=== PATIENT | male | born 1930 | race Caucasian/White ===

== ENCOUNTER 2017-08-13 13:50 | Outpatient (CLI) | payer MEDICARE, OTHER | END 2017-08-13 13:51 | disposition home or self-care (01) | LOC: LAB 13:50 | PROVIDERS: ATTEND Internal Medicine Cardiovascular Disease | DX: I34.1 Nonrheumatic mitral (valve) prolapse (principal); I48.91 Unspecified atrial fibrillation; Z79.01 Long term (current) use of anticoagulants | CPT/HCPCS: 85610 ==

== ENCOUNTER 2017-08-24 11:26 | Outpatient (CLI) | payer MEDICARE, OTHER | END 2017-08-24 11:27 | disposition home or self-care (01) | LOC: LAB.N 11:26 | PROVIDERS: ATTEND Internal Medicine Cardiovascular Disease | DX: I34.1 Nonrheumatic mitral (valve) prolapse (principal); I48.91 Unspecified atrial fibrillation; Z79.01 Long term (current) use of anticoagulants | CPT/HCPCS: 85610 ==

== ENCOUNTER 2017-12-02 13:40 | Outpatient (CLI) | payer MEDICARE, OTHER ==
[2017-12-02 19:18] LABS: INR 3.3 (0.8-1.2); PT - PROTHROMBIN TIME 36.1 secs (9.9-12.6)
[2017-12-02 19:26] LABS: BASOPHILS % (AUTO) 0.5 %; EOSINOPHILS # (AUTO) 0.1 10^3/uL (0.0-0.7); EOSINOPHILS % (AUTO) 1.7 %; HGB - HEMOGLOBIN 12.3 g/dL (14.0-18.0); LYMPHOCYTES # (AUTO) 0.8 10^3/uL (1.5-3.5); LYMPHOCYTES % (AUTO) 14.1 %; MEAN CORPUSCULAR HEMOGLOBIN 31.6 pg (27.0-31.0); MEAN CORPUSCULAR HGB CONC 32.3 g/dL (32.0-36.0); MEAN CORPUSCULAR VOLUME 97.8 fL (80.0-94.0); MEAN PLATELET VOLUME 10.1 fL (7.4-11.4); MONOCYTES # (AUTO) 0.6 10^3/uL (0.0-1.0); MONOCYTES % (AUTO) 10.8 %; NEUTROPHILS # (AUTO) 4.3 10^3/uL (1.5-6.6); NEUTROPHILS % (AUTO) 72.9 %; PLT - PLATELET COUNT 151 10^3/uL (130-450); RED BLOOD COUNT 3.91 10^6/uL (4.70-6.10); RED CELL DISTRIBUTION WIDTH 14.3 % (12.0-15.0); WHITE BLOOD COUNT 5.9 x10^3/uL (4.8-10.8)
== END 2017-12-02 13:41 | disposition home or self-care (01) ==
LOC: LAB.WCP 13:40
PROVIDERS: ATTEND Family Medicine
DX: D69.6 Thrombocytopenia, unspecified (principal); Z79.01 Long term (current) use of anticoagulants
CPT/HCPCS: 36415; 85025; 85610

== ENCOUNTER 2017-12-21 07:57 | Outpatient (CLI) | payer MEDICARE, OTHER | END 2017-12-21 07:58 | disposition home or self-care (01) | LOC: LAB.N 07:57 | PROVIDERS: ATTEND Internal Medicine Cardiovascular Disease | DX: I34.1 Nonrheumatic mitral (valve) prolapse (principal); I48.91 Unspecified atrial fibrillation; Z79.01 Long term (current) use of anticoagulants | CPT/HCPCS: 85610 ==

== ENCOUNTER 2018-03-01 08:00 | Outpatient (CLI) | payer MEDICARE, OTHER | END 2018-03-01 08:01 | LOC: LAB.N 08:00 | PROVIDERS: ATTEND Internal Medicine Cardiovascular Disease | DX: I34.1 Nonrheumatic mitral (valve) prolapse (principal); Z79.01 Long term (current) use of anticoagulants; I48.91 Unspecified atrial fibrillation | CPT/HCPCS: 85610 ==

== ENCOUNTER 2018-03-11 08:11 | Outpatient (CLI) | payer MEDICARE, OTHER | END 2018-03-11 08:12 | disposition home or self-care (01) | LOC: LAB.N 08:11 | PROVIDERS: ATTEND Internal Medicine Cardiovascular Disease | DX: I34.1 Nonrheumatic mitral (valve) prolapse (principal); I48.91 Unspecified atrial fibrillation; Z79.01 Long term (current) use of anticoagulants | CPT/HCPCS: 85610 ==

== ENCOUNTER 2018-03-30 08:30 | Outpatient (CLI) | payer MEDICARE, OTHER | END 2018-03-30 08:31 | LOC: LAB.N 08:30 | PROVIDERS: ATTEND Internal Medicine Cardiovascular Disease | DX: I34.1 Nonrheumatic mitral (valve) prolapse (principal); I48.91 Unspecified atrial fibrillation; Z79.01 Long term (current) use of anticoagulants | CPT/HCPCS: 85610 ==

== ENCOUNTER 2018-04-02 09:00 | Outpatient (CLI) | payer MEDICARE, OTHER | END 2018-04-02 09:01 | disposition home or self-care (01) | LOC: LAB.N 09:00 | PROVIDERS: ATTEND Internal Medicine Cardiovascular Disease | DX: I48.91 Unspecified atrial fibrillation (principal); I34.1 Nonrheumatic mitral (valve) prolapse; Z79.01 Long term (current) use of anticoagulants | CPT/HCPCS: 85610 ==

== ENCOUNTER 2018-06-07 19:06 | Inpatient (IN) | payer MEDICARE, OTHER ==
[2018-06-07 19:57] LABS: BASOPHILS # (AUTO) 0.1 10^3/uL (0.0-0.1); BASOPHILS % (AUTO) 0.5 %; EOSINOPHILS % (AUTO) 0.1 %; LYMPHOCYTES # (AUTO) 0.5 10^3/uL (1.5-3.5); LYMPHOCYTES % (AUTO) 4.6 %; MEAN CORPUSCULAR HEMOGLOBIN 31.6 pg (27.0-31.0); MEAN CORPUSCULAR HGB CONC 32.1 g/dL (32.0-36.0); MEAN CORPUSCULAR VOLUME 98.4 fL (80.0-94.0); MEAN PLATELET VOLUME 9.2 fL (7.4-11.4); MONOCYTES # (AUTO) 0.9 10^3/uL (0.0-1.0); MONOCYTES % (AUTO) 7.8 %; NEUTROPHILS # (AUTO) 10.3 10^3/uL (1.5-6.6); PLT - PLATELET COUNT 110 10^3/uL (130-450); RED BLOOD COUNT 4.12 10^6/uL (4.70-6.10); RED CELL DISTRIBUTION WIDTH 16.9 % (12.0-15.0); WHITE BLOOD COUNT 11.9 x10^3/uL (4.8-10.8)
[2018-06-07 20:08] LABS: ALBUMIN/GLOBULIN RATIO 1.7 (1.0-2.2); CREATININE 0.9 mg/dL (0.6-1.2); TOTAL PROTEIN 6.3 g/dL (6.7-8.2)
[2018-06-07] MEDS ORDERED: SODIUM CHLORIDE 0.9% 1,000 ML IV ONE (20:13)
--- NOTE | 2018-06-07 20:16 | XRAY Report ---
Procedure Date: 06/07/2018 Accession Number: [id number] / [id number] Procedure: XR - Chest 1 View X-Ray CPT Code: 90425 FULL RESULT: EXAM: CHEST RADIOGRAPHY EXAM DATE: 06/07/2018 07:57 PM. CLINICAL HISTORY: Fever. COMPARISON: None. TECHNIQUE: 1 view. FINDINGS: Lungs/Pleura: Nonspecific streaky left retrocardiac opacities. Lungs are otherwise clear. No pneumothorax or significant pleural effusion. Mediastinum: Mild cardiomegaly. Mildly tortuous thoracic aorta with mild calcification at the aortic arch. Pulmonary vasculature is within normal limits. Other: Diffuse osseous demineralization. IMPRESSION: 1. Nonspecific left basilar opacities may represent atelectasis/scarring versus aspiration/pneumonia. 2. Mild cardiomegaly without overt CHF/volume overload. RADIA
[2018-06-07] MEDS ORDERED: IPRATROPIUM/ALBUTEROL 3 ML NEB INH STA (20:39)
[2018-06-07] MEDS ORDERED: AZITHROMYCIN INJ 500 MG in SODIUM CHLORIDE 0.9% 250 ML IV STA (20:39)
[2018-06-07] MEDS ORDERED: cefTRIAXone 1 GM VIAL IVP STA (20:39)
--- NOTE | 2018-06-07 20:40 | ED Physician Documentation ---
History of Present Illness - Stated complaint Stated Complaint: FEVER - Chief complaint Chief Complaint: Fever - History obtained from History obtained from: Patient, Family - History of Present Illness Timing: Today Pain level max: 0 Pain level now: 0 Improved by: nothing Worsened by: nothing - Additonal information Additional information: Patient is an 88-year-old male who had a temperature of 101 at home today. Has had a cough for the past 5 years. Family states that he was weaker than usual today as well, normally lives independently at home with his . Today had trouble getting out of the chair and get into the bathroom. He has had trouble drinking liquids recently as well and appears to be coughing on the liquids when he drinks. Review of Systems Ten Systems: 10 systems reviewed and negative Constitutional: reports: Fever Nose: denies: Rhinorrhea / runny nose, Congestion Throat: denies: Sore throat Cardiac: denies: Chest pain / pressure Respiratory: reports: Cough GI: denies: Nausea, Vomiting, Diarrhea : denies: Dysuria, Frequency, Hesitancy Skin: denies: Rash Musculoskeletal: denies: Neck pain, Back pain Neurologic: denies: Focal weakness, Numbness, Headache PD PAST MEDICAL HISTORY - Past Medical History Past Medical History: Yes Cardiovascular: Atrial fibrillation Other Past Medical History: Has a health care directive. "Living Will" - Past Surgical History Past Surgical History: Yes Ortho: Hip replacement - Present Medications Home Medications: Ambulatory Orders Medication Instructions Recorded Confirmed Dabigatran Etexilate Mesylate 75 mg PO 06/07/18 [Pradaxa] Simvastatin 10 mg PO 06/07/18 - Allergies Allergies/Adverse Reactions: Allergies Allergy/AdvReac Type Severity Reaction Status Date / Time No Known Drug Allergies Allergy Verified 06/07/18 19:16 - Social History Does the pt smoke?: No Smoking Status: Never smoker Does the pt drink ETOH?: No Does the pt have substance abuse?: No - Immunizations Immunizations are current?: Yes PD ED PE NORMAL - Vitals Vital signs reviewed: Yes - General General: Alert and oriented X 3, No acute distress, Well developed/nourished - HEENT HEENT: PERRL, Ears normal, Moist mucous membranes, Pharynx benign - Neck Neck: Supple, no meningeal sign - Cardiac Cardiac: RRR, Strong equal pulses - Respiratory Respiratory: No respiratory distress, Other (Mild rhonchi left lower lobe with occasional wheeze) - Abdomen Abdomen: Soft, Non tender, Non distended - Back Back: No spinal TTP - Derm Derm: Warm and dry, No rash - Extremities Extremities: No edema, No calf tenderness / cord - Neuro Neuro: Alert and oriented X 3 - Psych Psych: Normal mood, Normal affect Results - Vitals Vitals: Vital Signs - 24 hr 06/07/18 06/07/18 06/07/18 19:11 20:56 20:59 Temperature 36.2 C L 98.3 C H Heart Rate 69 60 62 Respiratory 16 18 18 Rate Blood Pressure 145/65 H 127/76 O2 Saturation 94 96 06/07/18 22:30 Temperature 36.4 C L Heart Rate 68 Respiratory 19 Rate Blood Pressure 134/71 H O2 Saturation 95 Oxygen O2 Source Room air - Labs Labs: Laboratory Tests 06/07/18 06/07/18 19:45 19:45 WBC 11.9 H RBC 4.12 L Hgb 13.0 L Hct 40.6 L MCV 98.4 H MCH 31.6 H MCHC 32.1 RDW 16.9 H Plt Count 110 L MPV 9.2 Neut # (Auto) 10.3 H Lymph # (Auto) 0.5 L [place] # (Auto) 0.9 Eos # (Auto) 0.0 Baso # (Auto) 0.1 Absolute Nucleated RBC 0.00 Nucleated RBC % 0.0 Sodium 138 Potassium 4.0 Chloride 104 Carbon Dioxide 24 Anion Gap 10.0 BUN 26 H Creatinine 0.9 Estimated GFR (MDRD) 80 L Glucose 132 H Calcium 9.0 Total Bilirubin 2.0 H AST 25 ALT 19 Alkaline Phosphatase 95 Total Protein 6.3 L Albumin 4.0 Globulin 2.3 Albumin/Globulin Ratio 1.7 Lipase 20 L - Rads (name of study) cxr Radiology: Prelim report reviewed, EMP read contemporaneously, See rad report ( Nonspecific left basilar opacities may represent atelectasis/scarring versus aspiration/pneumonia. Mild cardiomegaly without overt CHF/volume overload. ) PD MEDICAL DECISION MAKING - ED course Complexity details: reviewed results, re-evaluated patient, considered differential, d/w patient, d/w family, d/w cardiology consultants ED course: Patient is an 88-year-old male who presents to the emergency department what appears to be a left basilar pneumonia. Possible aspiration related? Would likely benefit from a swallow eval or at least thickened liquids on his diet. Given Rocephin and azithromycin. Is still weaker than usual and trouble ambulating independently. Has a leukocytosis, will admit the patient for further care. Discussed the case with Dr. Lynne, hospitalist who accepts. This document was made in part using voice recognition software. While efforts are made to proofread this document, sound alike and grammatical errors may occur. - Sepsis Event Vital Signs: Vital Signs - 24 hr 06/07/18 06/07/18 06/07/18 19:11 20:56 20:59 Temperature 36.2 C L 98.3 C H Heart Rate 69 60 62 Respiratory 16 18 18 Rate Blood Pressure 145/65 H 127/76 O2 Saturation 94 96 06/07/18 22:30 Temperature 36.4 C L Heart Rate 68 Respiratory 19 Rate Blood Pressure 134/71 H O2 Saturation 95 Oxygen O2 Source Room air Departure - Departure Disposition: [address] [facility] DC/Xfer Clinical Impression: Weakness, Dehydration Fever Qualifiers: Fever type: unspecified Qualified Code(s): R50.9 - Fever, unspecified Pneumonia Qualifiers: Pneumonia type: due to unspecified organism Laterality: left Lung location: lower lobe of lung Qualified Code(s): J18.1 - Lobar pneumonia, unspecified organism Condition: Stable Discharge Date/Time: 06/07/18 23:54
[2018-06-07] MEDS ORDERED: WATER FOR INJECTION,STERILE 10 ML ONE (21:00)
[2018-06-07] MEDS ORDERED: PROCHLORPERAZINE 10 MG/2 ML VIAL IVP PRN (23:26)
[2018-06-07] MEDS ORDERED: IPRATROPIUM/ALBUTEROL 3 ML NEB INH PRN (23:26)
[2018-06-07] MEDS ORDERED: ACETAMINOPHEN 325 MG TABLET PO PRN (23:26)
[2018-06-07] MEDS ORDERED: ONDANSETRON 4 MG/2 ML VIAL IVP PRN (23:26)
[2018-06-07] MEDS ORDERED: oxyCODONE 5 MG TABLET PO PRN (23:26)
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
[2018-06-07] MEDS ORDERED: SODIUM CHLORIDE 0.9% 1,000 ML IV SCH (23:45)
[2018-06-08] MEDS: SODIUM CHLORIDE FLUSH 0.9% 10 ML SYRINGE IVP SCH ×3 (01:41→17:43)
[2018-06-08] MEDS: CLINDAMYCIN 900 MG/50 ML 50 ML IV SCH ×3 (05:37→17:43)
[2018-06-08 05:48] LABS: BASOPHILS % (AUTO) 0.6 %; EOSINOPHILS % (AUTO) 0.6 %; HGB - HEMOGLOBIN 12.3 g/dL (14.0-18.0); LYMPHOCYTES # (AUTO) 0.9 10^3/uL (1.5-3.5); LYMPHOCYTES % (AUTO) 10.8 %; MEAN CORPUSCULAR HEMOGLOBIN 32.4 pg (27.0-31.0); MEAN CORPUSCULAR HGB CONC 32.5 g/dL (32.0-36.0); MEAN CORPUSCULAR VOLUME 99.5 fL (80.0-94.0); MEAN PLATELET VOLUME 8.9 fL (7.4-11.4); MONOCYTES # (AUTO) 0.7 10^3/uL (0.0-1.0); MONOCYTES % (AUTO) 8.3 %; NEUTROPHILS # (AUTO) 6.5 10^3/uL (1.5-6.6); NEUTROPHILS % (AUTO) 79.7 %; PLT - PLATELET COUNT 105 10^3/uL (130-450); RED BLOOD COUNT 3.82 10^6/uL (4.70-6.10); RED CELL DISTRIBUTION WIDTH 17.6 % (12.0-15.0); WHITE BLOOD COUNT 8.2 x10^3/uL (4.8-10.8)
[2018-06-08 06:03] LABS: CALCIUM 8.5 mg/dL (8.5-10.3); CREATININE 0.8 mg/dL (0.6-1.2)
[2018-06-08] MEDS: cefTRIAXone 2 GM in SODIUM CHLORIDE 0.9% MINIBAG 100 ML IV SCH (08:09)
[2018-06-08] MEDS ORDERED: SODIUM CHLORIDE 0.9% 1,000 ML IV SCH (08:22)
[2018-06-08] MEDS ORDERED: ENOXAPARIN 40 MG/0.4 ML SYRINGE SUBQ SCH (09:00)
--- NOTE | 2018-06-08 10:06 | Ultrasound Report ---
Procedure Date: 06/08/2018 Accession Number: [id number] / [id number] Procedure: US - Abdomen Complete CPT Code: FULL RESULT: EXAM: Abdomen Complete DATE: 06/08/2018 9:44 AM CLINICAL HISTORY: Elevated bilirubin, generalized weakness COMPARISON: None. TECHNIQUE: Real-time scanning was performed with static images obtained. FINDINGS: Liver: Normal in size and echotexture. At least 12 cm. Main portal vein flow: Hepatopetal. There is small quantity perihepatic ascites. Gallbladder: The gallbladder wall is thickened to 5 mm without evidence of discontinuity or separation of the layers. There is no cholelithiasis and the gallbladder is not significantly distended. There is pericholecystic fluid. The sonographic Daniel's sign is negative, however, it is unclear whether the patient was premedicated with opioids. Biliary System: Common bile duct measures 4 mm. No intrahepatic or extrahepatic ductal dilatation. Pancreas: Visualized portion is unremarkable. Kidneys: Right: 9.8 cm longitudinally. Normal. No contour-deforming mass, stones, or hydronephrosis. Left: 10 cm longitudinally. Normal. No contour-deforming mass, stones, or hydronephrosis. Spleen: 8.3 x 3.6 x 7.8 cm. Normal in size and echotexture. Aorta and Inferior Vena Cava: Significant aortic atherosclerosis. IVC unremarkable. A small amount of right pleural fluid, retroperitoneal perisplenic and right lateral conal fascia fluid are also identified. These findings are without large volume of intraperitoneal ascites. IMPRESSION: Despite absence of a sonographic Daniel's sign and cholelithiasis, the examination is equivocal regarding cholecystitis. In the setting of elevated laboratory markers and clinical sepsis, a HIDA scan is recommended. If the patient does not meet SIRS criteria, this examination should be clinically treated as negative for cholecystitis. Small amount of intraperitoneal and retroperitoneal free fluid including in the gallbladder fossa without overt volume ascites or impression of anasarca. RADIA
[2018-06-08] MEDS: POLYETHYLENE GLYCOL 3350 17 GM PACKET PO SCH (10:12)
[2018-06-08] MEDS: LISINOPRIL 20 MG TABLET PO SCH (10:29)
[2018-06-08] MEDS: FAMOTIDINE 20 MG TABLET PO SCH (10:31)
[2018-06-08] MEDS: DABIGATRAN 75 MG CAPSULE PO SCH ×2 (10:32→20:07)
[2018-06-08] MEDS: SACCHAROMYCES BOULARDII 250 MG CAPSULE PO SCH ×2 (10:36→17:42)
[2018-06-08] MEDS: AZITHROMYCIN INJ 500 MG in SODIUM CHLORIDE 0.9% 250 ML IV SCH (10:38)
[2018-06-08] MEDS: SODIUM CHLORIDE 0.9% 1,000 ML IV SCH ×2 (10:42→14:31)
[2018-06-08 11:27] LABS: BILIRUBIN,URINE NEGATIVE (NEGATIVE); GLUCOSE, URINE (UA) NEGATIVE (NEGATIVE); KETONES,URINE (UA) NEGATIVE (NEGATIVE); LEUKOCYTE ESTERASE, URINE NEGATIVE (NEGATIVE); NITRITE,URINE NEGATIVE (NEGATIVE); OCCULT BLOOD,URINE MODERATE (NEGATIVE); PH,URINE 5.5 PH (5.0-7.5); PROTEIN,URINE TRACE mg/dL (NEGATIVE); UROBILINOGEN,URINE 0.2 (NORMAL) E.U./dL (NORMAL)
[2018-06-08 11:28] LABS: CLARITY,URINE CLEAR (CLEAR)
[2018-06-08 11:41] LABS: BACTERIA,URINE Rare /HPF (None Seen); SQUAMOUS EPITHELIAL CELL,UR NONE SEEN (<= Few)
[2018-06-08] MEDS ORDERED: NITROGLYCERIN SL 0.4 MG TABLET SL PRN (15:03)
[2018-06-08] MEDS ORDERED: FLUTICASONE NASAL SPRAY NAS PRN (15:03)
--- NOTE | 2018-06-08 15:08 | PROVIDER PROGRESS NOTE ---
Subjective - Prog Note Date Prog Note Date: 06/08/18 - Subjective Pt reports feeling: Improved Subjective: pt report he drink and eat regular diet. he denies fever, chill, CP, SOB. Swallow study is pending Current Medications - Current Medications Current Medications: Active Medications Acetaminophen (Tylenol) 650 mg PO Q4HR PRN PRN Reason: Pain 1 to 4 Albuterol/Ipratropium (Duoneb) 3 ml INH RTQID PRN PRN Reason: Wheezing Atorvastatin Calcium (Lipitor) 5 mg PO QPM COUNT INCLUDES [facility] Calcium Carbonate/Glycine (Oysco-500) 500 mg PO BID ALICIA Dabigatran (Pradaxa) 150 mg PO BID COUNT INCLUDES THE [facility] Last Admin: 06/08/18 10:32 Dose: 150 mg Enoxaparin Sodium (Lovenox) 40 mg SUBQ DAILY COUNT INCLUDES THE [facility] Last Admin: 06/08/18 08:08 Dose: Not Given Famotidine (Pepcid) 20 mg PO DAILY COUNT INCLUDES [facility] Last Admin: 06/08/18 10:31 Dose: 20 mg Fluticasone Propionate (Flonase) 1 sprays ELVIE BID PRN PRN Reason: Allergy Symptoms Azithromycin 500 mg/ Sodium (Chloride) 250 mls @ 250 mls/hr IV DAILY COUNT INCLUDES [facility] Last Infusion: 06/08/18 11:40 Dose: Infused Ceftriaxone Sodium 2 gm/ (Sodium Chloride) 100 mls @ 200 mls/hr IV DAILY COUNT INCLUDES [facility] Last Infusion: 06/08/18 08:39 Dose: Infused Clindamycin Phosphate (Cleocin 900 Mg/50 Ml) 50 mls @ 50 mls/hr IV Q6HR COUNT INCLUDES [facility] Last Infusion: 06/08/18 13:00 Dose: Infused Sodium Chloride (Normal Saline 0.9%) 1,000 mls @ 100 mls/hr IV .Q10H ALICIA Last Admin: 06/08/18 14:31 Dose: 100 mls/hr Latanoprost (Xalatan Ophth Drops) 1 drops EACHEYE QPM ALICIA Lisinopril (Zestril) 20 mg PO DAILY COUNT INCLUDES [facility] Last Admin: 06/08/18 10:29 Dose: 20 mg Multivitamins (Theragran) tab PO DAILY COUNT INCLUDES [facility] Nitroglycerin (Nitrostat) 0.4 mg SL Q5MIN PRN PRN Reason: Chest Pain Non-Formulary Medication (Cholecalciferol (Vitamin D3) [Vitamin D3]) 2,000 unit PO DAILY COUNT INCLUDES THE [facility] Ondansetron HCl (Zofran Inj) 4 mg IVP Q6HR PRN PRN Reason: Nausea / Vomiting Oxycodone HCl (Roxicodone) 5 mg PO Q4HR PRN PRN Reason: Pain 5 to 7 Polyethylene Glycol (Miralax) 17 gm PO DAILY COUNT INCLUDES [facility] Last Admin: 06/08/18 10:12 Dose: Not Given Prochlorperazine Edisylate (Compazine Inj) 10 mg IVP Q6HR PRN PRN Reason: Nausea / Vomiting Saccharomyces Boulardii (Florastor) 250 mg PO BIDWM COUNT INCLUDES THE [facility] Last Admin: 06/08/18 10:36 Dose: 250 mg Sodium Chloride (Normal Saline Flush 0.9%) 10 ml IVP PRN PRN PRN Reason: NEEDED PER PROVIDER ORDERS Sodium Chloride (Normal Saline Flush 0.9%) 10 ml IVP 0100,0900,1700 COUNT INCLUDES THE [facility] Last Admin: 06/08/18 10:15 Dose: Not Given Timolol Maleate (Timoptic 0.5% Ophth Drops) 1 drops EACHEYE BID COUNT INCLUDES THE [facility] Simvastatin 10 mg PO QPM 06/07/18 Calcium Carbonate [[id number]] 500 mg PO BID 06/08/18 Cholecalciferol (Vitamin D3) [Vitamin D] 2,000 unit PO DAILY 06/08/18 Dabigatran Etexilate Mesylate [Pradaxa] 150 mg PO BID 06/08/18 Fluticasone [Flonase] 1 sprays ELVIE BID PRN 06/08/18 Latanoprost 0.005% Ophth Drops [Xalatan Ophth Drops] 1 drops EACHEYE QPM Multivitamin [Theragran] 1 each PO DAILY 06/08/18 Nitroglycerin [Nitrostat] 0.4 mg SL Q5MIN PRN 06/08/18 Ramipril [Altace] 5 mg PO DAILY 06/08/18 Timolol 0.5% Ophth Drops [Timoptic 0.5% Ophth Drops] 1 drops EACHEYE BID Objective - Vital Signs/Intake & Output Reviewed Vital Signs: Yes Vital Signs: Vital Signs x48h Temp Pulse Pulse Pulse Resp BP BP 06/08/18 11:59 48 L 16 117/63 06/08/18 11:50 67 45 L 125/72 06/08/18 08:00 36.5 C 67 16 131/71 H BP Pulse Ox 06/08/18 11:59 99 06/08/18 11:50 117/63 06/08/18 08:00 97 Intake & Output: Intake & Output 06/05/18 06/06/18 06/07/18 06/08/18 23:59 23:59 23:59 23:59 Intake Total 1476.334 Output Total 425 Balance 1051.334 - Objective General Appearance: positive: No acute distress, Alert. negative: Lethargic Eyes Bilateral: positive: Normal inspection, PERRL. negative: No lid inflammation, Conjunctivae nml ENT: positive: ENT inspection nml, Pharynx nml, No signs of dehydration. negative: Purulent nasal drainage, Pharyngeal erythema, Oral lesions Neck: positive: Nml inspection, Thyroid nml, No JVD, Trachea midline. negative : Thyromegaly, Lymphadenopathy (R), Lymphadenopathy (L), Stiff neck, Swelling/ bruising, Tracheal deviation Respiratory: positive: Chest non-tender, No respiratory distress, Breath sounds nml. negative: Wheezes, Rales, Rhonchi Cardiovascular: positive: Regular rate & rhythm, Systolic murmur, Diastolic murmur. negative: Irregularly irregular, Extrasystoles, Tachycardia, Bradycardia Peripheral Pulses: 2+ Radial (R), 2+ Radial (L), 2+ Dorsalis pedis (R), 2+ Dorsalis pedis (L) Abdomen: positive: Non-tender, No organomegaly, Nml bowel sounds, No distention. negative: Tenderness, Guarding, Rebound Back: positive: Nml inspection. negative: CVA tenderness (R), CVA tenderness (L ) Skin: positive: Color nml, No rash, Warm, Dry. negative: Cyanosis, Diaphoresis , Pallor Extremities: positive: Non-tender, Full ROM, Nml appearance. negative: Calf tenderness, Joint swelling, Sinai's sign/cords Neurologic/Psychiatric: positive: Oriented x3, Sensation nml, Mood/affect nml. negative: Weakness, Sensory loss, Facial droop, Slurred/abnml speech, Depressed mood/affect - Lab Results Fish Bones: 06/08/18 05:26 06/08/18 05:26 Other Labs: Lab Results x24hrs 06/08/18 06/08/18 Range/Units 05:26 05:26 WBC 8.2 (4.8-10.8) x10^3/uL RBC 3.82 L (4.70-6.10) 10^6/uL Hgb 12.3 L (14.0-18.0) g/dL Hct 38.0 L (42.0-52.0) % MCV 99.5 H (80.0-94.0) fL MCH 32.4 H (27.0-31.0) pg MCHC 32.5 (32.0-36.0) g/dL RDW 17.6 H (12.0-15.0) % Plt Count 105 L (130-450) 10^3/uL MPV 8.9 (7.4-11.4) fL Neut # (Auto) 6.5 (1.5-6.6) 10^3/uL Lymph # (Auto) 0.9 L (1.5-3.5) 10^3/uL Blanco # (Auto) 0.7 (0.0-1.0) 10^3/uL Eos # (Auto) 0.0 (0.0-0.7) 10^3/uL Baso # (Auto) 0.0 (0.0-0.1) 10^3/uL Absolute Nucleated RBC 0.00 x10^3/uL Nucleated RBC % 0.0 /100WBC Sodium 142 (135-145) mmol/L Potassium 3.8 (3.5-5.0) mmol/L Chloride 108 (101-111) mmol/L Carbon Dioxide 27 (21-32) mmol/L Anion Gap 7.0 (6-13) BUN 21 H (6-20) mg/dL Creatinine 0.8 (0.6-1.2) mg/dL Estimated GFR (MDRD) 91 (>89) Glucose 107 H (70-100) mg/dL Calcium 8.5 (8.5-10.3) mg/dL ABX Reporting Has patient been on IV antibiotics over the past 48 hours?: Yes Assessment/Plan - Problem List (1) CAP (community acquired pneumonia) Impression: Conclusion/Plan: 06/08 pt's WBC is normal now, 99% sats on room air, response well to the treatment continue antibiotics vital and lab monitor pt Patient presented to the emergency department with generalized weakness. He is also been having coughing for the last week which appears to be worse with drinking fluids. Patient developed fever at home and had generalized weakness. On presentation to the emergency department the patient is not hypoxic but does have a leukocytosis and chest x-ray shows a left basilar infiltrate concerning for pneumonia. The patient's pneumonia severity index score is 103 for which a hospitalization is recommended. Patient is admitted for treatment of community acquired pneumonia. There is also concern for possible aspiration therefore patient will also be given coverage for aspiration pneumonia. Plan: IV antibiotics with ceftriaxone, azithromycin and clindamycin to cover community -acquired pneumonia and aspiration pneumonia Supplemental oxygen as needed IV fluids Physical therapy for generalized weakness (2) Generalized weakness Conclusion/Plan: 06/08 PT evaluation Treat pneumonia with IV antibiotics and IV fluids Patient presented with generalized weakness. Patient at baseline is ambulatory without any assistance. Today the patient was barely able to stand up from his chair and was requiring assistance with ambulation. This occurred acutely but he did not have any focal deficits. It appears that his generalized weakness is secondary to ongoing pneumonia. Plan: Treat pneumonia with IV antibiotics and IV fluids PT evaluation (3) Atrial fibrillation Conclusion/Plan: continue tele and vital monitor continue Pradaxa Patient has chronic atrial fibrillation and is on Pradaxa for anticoagulation. The patient's heart rate appears to be well-controlled in the 60s. Patient is not on any rate control agents. We will continue the patient's home dose of Pradaxa and get an echocardiogram to evaluate cardiac function (4) Hyperbilirubinemia Conclusion/Plan: The patient has hyperbilirubinemia with a total bilirubin of 2.0. This is elevated from being normal in September 2017. The patient does not appear to be jaundiced but given that he also has a thrombocytopenia we are concerned about possible liver disease. Therefore patient will get an abdominal ultrasound and we will continue to monitor his bilirubin. (5) Thrombocytopenia Conclusion/Plan: Patient has thrombocytopenia with a platelet count of 110. The patient's platelet count was in the normal range in November 2017. Given that he also has a elevated bilirubin and concern for the possibility of liver disease causing thrombocytopenia therefore we will get an abdominal ultrasound. The patient does not appear to be on any medications that would cause thrombocytopenia. We will continue to monitor the patient's platelets. (6) Hyperlipidemia Conclusion/Plan: Patient has a history of hyperlipidemia and is on a statin at home. While the patient is hospitalized will be continued on his home dose of statin. (7) pulmonary hypertension RVSP is 104 mmHG, it seems pt is without fluid retention in CXR, no edema on leg. continue support, O2 supple as needed Qualifiers: Laterality: left Lung location: lower lobe of lung Qualified Code(s): J18.1 - Lobar pneumonia, unspecified organism
[2018-06-08] MEDS: CALCIUM CARB (OYSTER SHELL) 500 MG TABLET PO SCH (20:07)
[2018-06-08] MEDS: ATORVASTATIN 10 MG TABLET PO SCH (20:07)
[2018-06-08] MEDS: TIMOLOL 0.5% OPHTH DROPS EACHEYE SCH (20:20)
[2018-06-08] MEDS: LATANOPROST 0.005% OPHTH DROPS EACHEYE SCH (20:20)
[2018-06-09] MEDS: CLINDAMYCIN 900 MG/50 ML 50 ML IV SCH ×4 (00:35→19:40)
[2018-06-09] MEDS: SODIUM CHLORIDE FLUSH 0.9% 10 ML SYRINGE IVP SCH ×3 (00:36→17:05)
[2018-06-09] MEDS: SODIUM CHLORIDE 0.9% 1,000 ML IV SCH ×3 (00:36→17:57)
[2018-06-09 05:22] LABS: BASOPHILS % (AUTO) 0.5 %; EOSINOPHILS % (AUTO) 0.9 %; HGB - HEMOGLOBIN 12.7 g/dL (14.0-18.0); LYMPHOCYTES # (AUTO) 0.8 10^3/uL (1.5-3.5); LYMPHOCYTES % (AUTO) 13.5 %; MEAN CORPUSCULAR HEMOGLOBIN 32.2 pg (27.0-31.0); MEAN CORPUSCULAR HGB CONC 32.2 g/dL (32.0-36.0); MEAN PLATELET VOLUME 9.3 fL (7.4-11.4); MONOCYTES # (AUTO) 0.5 10^3/uL (0.0-1.0); NEUTROPHILS # (AUTO) 4.2 10^3/uL (1.5-6.6); NEUTROPHILS % (AUTO) 76.1 %; PLT - PLATELET COUNT 92 10^3/uL (130-450); RED BLOOD COUNT 3.94 10^6/uL (4.70-6.10); RED CELL DISTRIBUTION WIDTH 17.5 % (12.0-15.0); WHITE BLOOD COUNT 5.6 x10^3/uL (4.8-10.8)
[2018-06-09 05:25] LABS: CALCIUM 8.3 mg/dL (8.5-10.3); CREATININE 0.9 mg/dL (0.6-1.2)
[2018-06-09] MEDS: FAMOTIDINE 20 MG TABLET PO SCH (09:20)
[2018-06-09] MEDS: DABIGATRAN 75 MG CAPSULE PO SCH ×2 (09:20→21:20)
[2018-06-09] MEDS: MULTIVITAMIN TABLET PO SCH (09:21)
[2018-06-09] MEDS: POLYETHYLENE GLYCOL 3350 17 GM PACKET PO SCH (09:21)
[2018-06-09] MEDS: AZITHROMYCIN INJ 500 MG in SODIUM CHLORIDE 0.9% 250 ML IV SCH (09:21)
[2018-06-09] MEDS: CALCIUM CARB (OYSTER SHELL) 500 MG TABLET PO SCH ×2 (09:21→21:20)
[2018-06-09] MEDS: cefTRIAXone 2 GM in SODIUM CHLORIDE 0.9% MINIBAG 100 ML IV SCH (09:21)
[2018-06-09] MEDS: CHOLECALCIFEROL 1,000 UNIT TABLET PO SCH (09:22)
[2018-06-09] MEDS: SACCHAROMYCES BOULARDII 250 MG CAPSULE PO SCH ×2 (09:22→17:26)
[2018-06-09] MEDS: LISINOPRIL 20 MG TABLET PO SCH (09:22)
[2018-06-09] MEDS: TIMOLOL 0.5% OPHTH DROPS EACHEYE SCH ×2 (09:25→21:20)
--- NOTE | 2018-06-09 13:41 | XRAY Report ---
Procedure Date: 06/09/2018 Accession Number: [id number] / [id number] Procedure: [place] - Modified Barium Swallow W/SP CPT Code: FULL RESULT: EXAM: Modified Barium Swallow W/SP DATE: 06/09/2018 1:25 PM CLINICAL HISTORY: dysphagia COMPARISON: None. TECHNIQUE: Under the direction of speech pathology, patient swallowed various consistencies of barium under lateral fluoroscopic observation of the neck. Fluoroscopic exposure time: 1 minute 27 seconds. Number of fluoroscopic images: 78. Cine fluoroscopy recorded. FINDINGS: Airway Protection: Normal epiglottic motion. Hesitation and some penetration. Other: Lateral contrast retaining outpouching on the patient's right side, suspect Hussein Kirsten diverticulum/dehiscence. Please also refer to full report from Speech Pathology. IMPRESSION: Penetration without aspiration. 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 Surgical referral for evaluation, direct visualization and potential intervention is recommended. RADIA
--- NOTE | 2018-06-09 16:06 | PROVIDER PROGRESS NOTE ---
Subjective - Prog Note Date Prog Note Date: 06/09/18 - Subjective Pt reports feeling: Improved Subjective: pt has no cough, fever, chill, CP, SOB. but today pt present some confused. Current Medications - Current Medications Current Medications: Active Medications Acetaminophen (Tylenol) 650 mg PO Q4HR PRN PRN Reason: Pain 1 to 4 Albuterol/Ipratropium (Duoneb) 3 ml INH RTQID PRN PRN Reason: Wheezing Atorvastatin Calcium (Lipitor) 5 mg PO QPM [facility] Last Admin: 06/08/18 20:07 Dose: 5 mg Calcium Carbonate/Glycine (Oysco-500) 500 mg PO BID [facility] Last Admin: 06/09/18 09:21 Dose: 500 mg Cholecalciferol (Vitamin D3) 2,000 unit PO DAILY [facility] Last Admin: 06/09/18 09:22 Dose: 2,000 unit Dabigatran (Pradaxa) 150 mg PO BID [facility] Last Admin: 06/09/18 09:20 Dose: 150 mg Famotidine (Pepcid) 20 mg PO DAILY [facility] Last Admin: 06/09/18 09:20 Dose: 20 mg Fluticasone Propionate (Flonase) 1 sprays ELVIE BID PRN PRN Reason: Allergy Symptoms Ceftriaxone Sodium 2 gm/ (Sodium Chloride) 100 mls @ 200 mls/hr IV DAILY [facility] Last Infusion: 06/09/18 11:26 Dose: Infused Clindamycin Phosphate (Cleocin 900 Mg/50 Ml) 50 mls @ 50 mls/hr IV Q6HR [facility] Last Admin: 06/09/18 14:06 Dose: 50 mls/hr Sodium Chloride (Normal Saline 0.9%) 1,000 mls @ 75 mls/hr IV .[id number] [facility] Last Admin: 06/09/18 08:00 Dose: 75 mls/hr Latanoprost (Xalatan Ophth Drops) 1 drops EACHEYE QPM [facility] Last Admin: 06/08/18 20:20 Dose: Not Given Lisinopril (Zestril) 20 mg PO DAILY [facility] Last Admin: 06/09/18 09:22 Dose: 20 mg Multivitamins (Theragran) 1 tab PO DAILY [facility] Last Admin: 06/09/18 09:21 Dose: 1 tab Nitroglycerin (Nitrostat) 0.4 mg SL Q5MIN PRN PRN Reason: Chest Pain Ondansetron HCl (Zofran Inj) 4 mg IVP Q6HR PRN PRN Reason: Nausea / Vomiting Polyethylene Glycol (Miralax) 17 gm PO DAILY [facility] Last Admin: 06/09/18 09:21 Dose: 17 gm Prochlorperazine Edisylate (Compazine Inj) 10 mg IVP Q6HR PRN PRN Reason: Nausea / Vomiting Saccharomyces Boulardii (Florastor) 250 mg PO BIDWM [facility] Last Admin: 06/09/18 09:22 Dose: 250 mg Sodium Chloride (Normal Saline Flush 0.9%) 10 ml IVP PRN PRN PRN Reason: NEEDED PER PROVIDER ORDERS Sodium Chloride (Normal Saline Flush 0.9%) 10 ml IVP 0100,0900,1700 [facility] Last Admin: 06/09/18 09:23 Dose: 10 ml Timolol Maleate (Timoptic 0.5% Ophth Drops) 1 drops EACHEYE BID [facility] Last Admin: 06/09/18 09:25 Dose: 1 drops Simvastatin 10 mg PO QPM 06/07/18 Calcium Carbonate [[id number]] 500 mg PO BID 06/08/18 Cholecalciferol (Vitamin D3) [Vitamin D] 2,000 unit PO DAILY 06/08/18 Dabigatran Etexilate Mesylate [Pradaxa] 150 mg PO BID 06/08/18 Fluticasone [Flonase] 1 sprays ELVIE BID PRN 06/08/18 Latanoprost 0.005% Ophth Drops [Xalatan Ophth Drops] 1 drops EACHEYE QPM Multivitamin [Theragran] 1 each PO DAILY 06/08/18 Nitroglycerin [Nitrostat] 0.4 mg SL Q5MIN PRN 06/08/18 Ramipril [Altace] 5 mg PO DAILY 06/08/18 Timolol 0.5% Ophth Drops [Timoptic 0.5% Ophth Drops] 1 drops EACHEYE BID Objective - Vital Signs/Intake & Output Reviewed Vital Signs: Yes Vital Signs: Vital Signs x48h Temp Pulse Resp BP Pulse Ox 06/09/18 15:23 36.5 C 63 20 139/76 H 98 06/09/18 14:02 36.7 C 66 20 130/74 97 Intake & Output: Intake & Output 06/06/18 06/07/18 06/08/18 06/09/18 23:59 23:59 23:59 23:59 Intake Total 5547.098 1668 Output Total 1025 850 Balance 881.334 960 - Objective General Appearance: positive: No acute distress, Alert. negative: Lethargic Eyes Bilateral: positive: Normal inspection, PERRL, No lid inflammation, Conjunctivae nml ENT: positive: ENT inspection nml, Pharynx nml, No signs of dehydration. negative: Purulent nasal drainage, Pharyngeal erythema, Oral lesions Neck: positive: Nml inspection, Thyroid nml, No JVD, Trachea midline. negative : Thyromegaly, Lymphadenopathy (R), Lymphadenopathy (L), Stiff neck, Swelling/ bruising, Tracheal deviation Respiratory: positive: Chest non-tender, No respiratory distress, Breath sounds nml. negative: Wheezes, Rales, Rhonchi Cardiovascular: positive: Regular rate & rhythm, No murmur, No gallop. negative : Irregularly irregular, Extrasystoles, Tachycardia, Bradycardia, JVD present, Systolic murmur, Diastolic murmur Peripheral Pulses: 2+ Radial (R), 2+ Radial (L), 2+ Dorsalis pedis (R), 2+ Dorsalis pedis (L) Abdomen: positive: Non-tender, No organomegaly, Nml bowel sounds, No distention. negative: Tenderness, Guarding, Rebound Back: positive: Nml inspection. negative: CVA tenderness (R), CVA tenderness (L ) Skin: positive: Color nml, No rash, Warm, Dry. negative: Cyanosis, Diaphoresis , Pallor Extremities: positive: Non-tender, Full ROM, Nml appearance. negative: Calf tenderness, Joint swelling, Sinai's sign/cords Neurologic/Psychiatric: positive: Sensation nml, Mood/affect nml. negative: Weakness, Sensory loss, Facial droop, Slurred/abnml speech, Depressed mood/ affect - Lab Results Fish Bones: 06/09/18 05:05 06/09/18 05:05 Other Labs: Lab Results x24hrs 06/09/18 06/09/18 Range/Units 05:05 05:05 WBC 5.6 (4.8-10.8) x10^3/uL RBC 3.94 L (4.70-6.10) 10^6/uL Hgb 12.7 L (14.0-18.0) g/dL Hct 39.4 L (42.0-52.0) % MCV 100.0 H (80.0-94.0) fL MCH 32.2 H (27.0-31.0) pg MCHC 32.2 (32.0-36.0) g/dL RDW 17.5 H (12.0-15.0) % Plt Count 92 L (130-450) 10^3/uL MPV 9.3 (7.4-11.4) fL Neut # (Auto) 4.2 (1.5-6.6) 10^3/uL Lymph # (Auto) 0.8 L (1.5-3.5) 10^3/uL Gordon # (Auto) 0.5 (0.0-1.0) 10^3/uL Eos # (Auto) 0.0 (0.0-0.7) 10^3/uL Baso # (Auto) 0.0 (0.0-0.1) 10^3/uL Absolute Nucleated RBC 0.01 x10^3/uL Nucleated RBC % 0.1 /100WBC Sodium 140 (135-145) mmol/L Potassium 3.8 (3.5-5.0) mmol/L Chloride 110 (101-111) mmol/L Carbon Dioxide 22 (21-32) mmol/L Anion Gap 8.0 (6-13) BUN 20 (6-20) mg/dL Creatinine 0.9 (0.6-1.2) mg/dL Estimated GFR (MDRD) 80 L (>89) Glucose 118 H (70-100) mg/dL Calcium 8.3 L (8.5-10.3) mg/dL ABX Reporting Has patient been on IV antibiotics over the past 48 hours?: Yes Assessment/Plan - Problem List (1) CAP (community acquired pneumonia) Impression: (1) CAP (community acquired pneumonia) Impression: Conclusion/Plan: 06/09 pt's WBC is normal now, 98% sats on room air. no fever, chill, cough. response well to the treatment continue antibiotics vital and lab monitor pt 06/08 pt's WBC is normal now, 99% sats on room air, response well to the treatment continue antibiotics vital and lab monitor pt Patient presented to the emergency department with generalized weakness. He is also been having coughing for the last week which appears to be worse with drinking fluids. Patient developed fever at home and had generalized weakness. On presentation to the emergency department the patient is not hypoxic but does have a leukocytosis and chest x-ray shows a left basilar infiltrate concerning for pneumonia. The patient's pneumonia severity index score is 103 for which a hospitalization is recommended. Patient is admitted for treatment of community acquired pneumonia. There is also concern for possible aspiration therefore patient will also be given coverage for aspiration pneumonia. Plan: IV antibiotics with ceftriaxone, azithromycin and clindamycin to cover community -acquired pneumonia and aspiration pneumonia Supplemental oxygen as needed IV fluids Physical therapy for generalized weakness (2) Generalized weakness Conclusion/Plan: 06/09, continue PT/OT, PT/OT recommend previous living condition. plan d/c tomorrow. 06/08 PT evaluation Treat pneumonia with IV antibiotics and IV fluids Patient presented with generalized weakness. Patient at baseline is ambulatory without any assistance. Today the patient was barely able to stand up from his chair and was requiring assistance with ambulation. This occurred acutely but he did not have any focal deficits. It appears that his generalized weakness is secondary to ongoing pneumonia. Plan: Treat pneumonia with IV antibiotics and IV fluids PT evaluation (3) Atrial fibrillation Conclusion/Plan: continue tele and vital monitor continue Pradaxa Patient has chronic atrial fibrillation and is on Pradaxa for anticoagulation. The patient's heart rate appears to be well-controlled in the 60s. Patient is not on any rate control agents. We will continue the patient's home dose of Pradaxa and get an echocardiogram to evaluate cardiac function (4) Hyperbilirubinemia Conclusion/Plan: The patient has hyperbilirubinemia with a total bilirubin of 2.0. This is elevated from being normal in September 2017. The patient does not appear to be jaundiced but given that he also has a thrombocytopenia we are concerned about possible liver disease. Therefore patient will get an abdominal ultrasound and we will continue to monitor his bilirubin. (5) Thrombocytopenia Conclusion/Plan: Patient has thrombocytopenia with a platelet count of 110. The patient's platelet count was in the normal range in November 2017. Given that he also has a elevated bilirubin and concern for the possibility of liver disease causing thrombocytopenia therefore we will get an abdominal ultrasound. The patient does not appear to be on any medications that would cause thrombocytopenia. We will continue to monitor the patient's platelets. (6) Hyperlipidemia Conclusion/Plan: Patient has a history of hyperlipidemia and is on a statin at home. While the patient is hospitalized will be continued on his home dose of statin. (7) pulmonary hypertension RVSP is 104 mmHG, it seems pt is without fluid retention in CXR, no edema on leg. continue support, O2 supple as needed (8) delirium/confusion pt present some confused. Discussed with pharmacy, hold Azithymycin re-oriented to pt neur check Qualifiers: Laterality: left Lung location: lower lobe of lung Qualified Code(s): J18.1 - Lobar pneumonia, unspecified organism
[2018-06-09] MEDS ORDERED: SODIUM CHLORIDE FLUSH 0.9% 10 ML SYRINGE ONE (16:33)
[2018-06-09] MEDS: ATORVASTATIN 10 MG TABLET PO SCH (21:19)
[2018-06-09] MEDS: LATANOPROST 0.005% OPHTH DROPS EACHEYE SCH (21:20)
[2018-06-10] MEDS: SODIUM CHLORIDE FLUSH 0.9% 10 ML SYRINGE IVP SCH ×3 (01:13→17:51)
[2018-06-10] MEDS: CLINDAMYCIN 900 MG/50 ML 50 ML IV SCH ×4 (01:47→19:54)
[2018-06-10 05:03] LABS: BASOPHILS % (AUTO) 0.4 %; EOSINOPHILS % (AUTO) 0.1 %; HGB - HEMOGLOBIN 13.4 g/dL (14.0-18.0); LYMPHOCYTES # (AUTO) 0.7 10^3/uL (1.5-3.5); LYMPHOCYTES % (AUTO) 8.5 %; MEAN CORPUSCULAR HEMOGLOBIN 32.4 pg (27.0-31.0); MEAN CORPUSCULAR HGB CONC 33.3 g/dL (32.0-36.0); MEAN CORPUSCULAR VOLUME 97.2 fL (80.0-94.0); MEAN PLATELET VOLUME 9.5 fL (7.4-11.4); MONOCYTES # (AUTO) 0.8 10^3/uL (0.0-1.0); MONOCYTES % (AUTO) 9.5 %; NEUTROPHILS # (AUTO) 6.4 10^3/uL (1.5-6.6); NEUTROPHILS % (AUTO) 81.5 %; PLT - PLATELET COUNT 109 10^3/uL (130-450); RED BLOOD COUNT 4.15 10^6/uL (4.70-6.10); RED CELL DISTRIBUTION WIDTH 17.1 % (12.0-15.0); WHITE BLOOD COUNT 7.9 x10^3/uL (4.8-10.8)
[2018-06-10 05:08] LABS: CALCIUM 8.6 mg/dL (8.5-10.3)
[2018-06-10] MEDS: SACCHAROMYCES BOULARDII 250 MG CAPSULE PO SCH ×2 (07:52→16:56)
--- NOTE | 2018-06-10 08:37 | XRAY Report ---
Procedure Date: 06/10/2018 Accession Number: [id number] / [id number] Procedure: XR - Chest 1 View X-Ray CPT Code: 41507 FULL RESULT: EXAM: Chest 1 View X-Ray DATE: 06/10/2018 8:26 AM CLINICAL HISTORY: SOB COMPARISON: 06/07/2018. TECHNIQUE: Single view of the chest. FINDINGS: Interval decrease in lung volumes with increased prominence of interstitial pulmonary markings and blunting of the right lung base with a small left pleural effusion. Stable cardiomegaly with stable widening of the vascular pedicle and no focal pulmonary opacities in the upper lungs. IMPRESSION: Central vascular congestion and small left pleural effusion, new compared to prior. RADIA
[2018-06-10] MEDS: CALCIUM CARB (OYSTER SHELL) 500 MG TABLET PO SCH ×2 (08:51→20:06)
[2018-06-10] MEDS: DABIGATRAN 75 MG CAPSULE PO SCH ×2 (08:51→20:06)
[2018-06-10] MEDS: MULTIVITAMIN TABLET PO SCH (08:52)
[2018-06-10] MEDS: FAMOTIDINE 20 MG TABLET PO SCH (08:52)
[2018-06-10] MEDS: LISINOPRIL 20 MG TABLET PO SCH (08:52)
[2018-06-10] MEDS: CHOLECALCIFEROL 1,000 UNIT TABLET PO SCH (08:52)
[2018-06-10] MEDS: cefTRIAXone 2 GM in SODIUM CHLORIDE 0.9% MINIBAG 100 ML IV SCH (08:52)
[2018-06-10] MEDS: POLYETHYLENE GLYCOL 3350 17 GM PACKET PO SCH (08:53)
[2018-06-10] MEDS: SODIUM CHLORIDE 0.9% 1,000 ML IV SCH (08:54)
[2018-06-10] MEDS: TIMOLOL 0.5% OPHTH DROPS EACHEYE SCH ×2 (08:54→20:06)
--- NOTE | 2018-06-10 12:13 | CT Report ---
Procedure Date: 06/10/2018 Accession Number: [id number] / [id number] Procedure: CT - Head W/O CPT Code: FULL RESULT: EXAM: CT HEAD EXAM DATE: 06/10/2018 CLINICAL HISTORY: Facial droop COMPARISON: None. TECHNIQUE: Multiaxial CT images were obtained from the foramen magnum to the vertex. Reformats: Coronal. IV contrast: None. In accordance with CT protocol optimization, one or more of the following dose reduction techniques were utilized for this exam: automated exposure control, adjustment of mA and/or KV based on patient size, or use of iterative reconstructive technique. FINDINGS: The degree of ventricular prominence, particularly in the lateral ventricle bilaterally, is at the upper limits of normal relative to sulcal prominence No extra-axial fluid collection is seen. Boyle white matter differentiation is preserved. Areas of low attenuation are seen throughout the cerebral hemisphere white matter. No intracranial mass or hemorrhage is present. The calvarium is intact. IMPRESSION: 1. No acute intracranial process is identified by noncontrast head CT. 2. Areas of low attenuation in the cerebral hemisphere white matter are nonspecific. Commonly, these are secondary to small vessel ischemic change. 3. Ventricles are at the upper limits of normal relative to sulcal prominence. This could be due to central volume loss or NPH.
--- NOTE | 2018-06-10 16:00 | PROVIDER PROGRESS NOTE ---
Subjective - Prog Note Date Prog Note Date: 06/10/18 - Subjective Pt reports feeling: Improved Subjective: family concern pt's neurological status. pt did show right facial slight or gently droop. order CT of head. nurse also report pt's HR is around 50, pt seems fatigue. pt denies chest pain, fever, chill, cough, SOB. Current Medications - Current Medications Current Medications: Active Medications Acetaminophen (Tylenol) 650 mg PO Q4HR PRN PRN Reason: Pain 1 to 4 Albuterol/Ipratropium (Duoneb) 3 ml INH RTQID PRN PRN Reason: Wheezing Atorvastatin Calcium (Lipitor) 5 mg PO QPM [facility] Last Admin: 06/09/18 21:19 Dose: 5 mg Calcium Carbonate/Glycine (Oysco-500) 500 mg PO BID [facility] Last Admin: 06/10/18 08:51 Dose: 500 mg Cholecalciferol (Vitamin D3) 2,000 unit PO DAILY [facility] Last Admin: 06/10/18 08:52 Dose: 2,000 unit Dabigatran (Pradaxa) 150 mg PO BID [facility] Last Admin: 06/10/18 08:51 Dose: 150 mg Famotidine (Pepcid) 20 mg PO DAILY [facility] Last Admin: 06/10/18 08:52 Dose: 20 mg Fluticasone Propionate (Flonase) 1 sprays ELVIE BID PRN PRN Reason: Allergy Symptoms Ceftriaxone Sodium 2 gm/ (Sodium Chloride) 100 mls @ 200 mls/hr IV DAILY [facility] Last Infusion: 06/10/18 09:55 Dose: Infused Clindamycin Phosphate (Cleocin 900 Mg/50 Ml) 50 mls @ 50 mls/hr IV Q6H [facility] Last Infusion: 06/10/18 14:45 Dose: Infused Latanoprost (Xalatan Ophth Drops) 1 drops EACHEYE QPM [facility] Last Admin: 06/09/18 21:20 Dose: 1 drops Lisinopril (Zestril) 20 mg PO DAILY [facility] Last Admin: 06/10/18 08:52 Dose: 20 mg Multivitamins (Theragran) 1 tab PO DAILY [facility] Last Admin: 06/10/18 08:52 Dose: 1 tab Nitroglycerin (Nitrostat) 0.4 mg SL Q5MIN PRN PRN Reason: Chest Pain Ondansetron HCl (Zofran Inj) 4 mg IVP Q6HR PRN PRN Reason: Nausea / Vomiting Polyethylene Glycol (Miralax) 17 gm PO DAILY [facility] Last Admin: 06/10/18 08:53 Dose: Not Given Prochlorperazine Edisylate (Compazine Inj) 10 mg IVP Q6HR PRN PRN Reason: Nausea / Vomiting Saccharomyces Boulardii (Florastor) 250 mg PO BIDWM [facility] Last Admin: 06/10/18 07:52 Dose: 250 mg Sodium Chloride (Normal Saline Flush 0.9%) 10 ml IVP PRN PRN PRN Reason: NEEDED PER PROVIDER ORDERS Sodium Chloride (Normal Saline Flush 0.9%) 10 ml IVP 0100,0900,1700 [facility] Last Admin: 06/10/18 08:53 Dose: Not Given Timolol Maleate (Timoptic 0.5% Ophth Drops) 1 drops EACHEYE BID [facility] Last Admin: 06/10/18 08:54 Dose: 1 drops Simvastatin 10 mg PO QPM 06/07/18 Calcium Carbonate [Kdbr-Qis-149] 500 mg PO BID 06/08/18 Cholecalciferol (Vitamin D3) [Vitamin D] 2,000 unit PO DAILY 06/08/18 Dabigatran Etexilate Mesylate [Pradaxa] 150 mg PO BID 06/08/18 Fluticasone [Flonase] 1 sprays ELVIE BID PRN 06/08/18 Latanoprost 0.005% Ophth Drops [Xalatan Ophth Drops] 1 drops EACHEYE QPM Multivitamin [Theragran] 1 each PO DAILY 06/08/18 Nitroglycerin [Nitrostat] 0.4 mg SL Q5MIN PRN 06/08/18 Ramipril [Altace] 5 mg PO DAILY 06/08/18 Timolol 0.5% Ophth Drops [Timoptic 0.5% Ophth Drops] 1 drops EACHEYE BID Objective - Vital Signs/Intake & Output Reviewed Vital Signs: Yes Vital Signs: Vital Signs x48h Temp Pulse Resp BP Pulse Ox 06/10/18 12:53 36.3 C L 61 18 91/77 97 06/10/18 08:00 36.3 C L 72 20 151/89 H 93 Intake & Output: Intake & Output 07/30/18 07/31/18 08/01/18 08/02/18 23:59 23:59 23:59 23:59 Intake Total 0056.930 9763.25 1500.0 Output Total 1025 1300 450 Balance 960.623 7973.25 1050.0 - Objective General Appearance: positive: No acute distress, Alert. negative: Lethargic Eyes Bilateral: positive: Normal inspection, PERRL, No lid inflammation, Conjunctivae nml ENT: positive: ENT inspection nml, Pharynx nml, No signs of dehydration. negative: Purulent nasal drainage, Pharyngeal erythema, Oral lesions Neck: positive: Nml inspection, Thyroid nml, No JVD, Trachea midline. negative : Thyromegaly, Lymphadenopathy (R), Lymphadenopathy (L), Stiff neck, Carotid bruit, Swelling/bruising, Tracheal deviation Respiratory: positive: Chest non-tender, No respiratory distress. negative: Wheezes, Rales Cardiovascular: positive: Regular rate & rhythm, Irregularly irregular, Systolic murmur, Diastolic murmur. negative: Extrasystoles, Tachycardia, Bradycardia Peripheral Pulses: 2+ Radial (R), 2+ Radial (L), 2+ Dorsalis pedis (R), 2+ Dorsalis pedis (L) Abdomen: positive: Non-tender, No organomegaly, Nml bowel sounds, No distention. negative: Tenderness, Guarding, Rebound Back: positive: Nml inspection. negative: CVA tenderness (R), CVA tenderness (L ) Skin: positive: Color nml, No rash, Warm, Dry. negative: Cyanosis, Diaphoresis , Pallor Extremities: positive: Non-tender, Full ROM, Nml appearance. negative: Calf tenderness, Joint swelling, Sinai's sign/cords Neurologic/Psychiatric: positive: Sensation nml, Mood/affect nml. negative: Weakness, Sensory loss, Facial droop, Slurred/abnml speech, Depressed mood/ affect - Lab Results Fish Bones: 06/10/18 04:40 06/10/18 04:40 Other Labs: Lab Results x24hrs 06/10/18 06/10/18 06/09/18 Range/Units 04:40 04:40 17:05 WBC 7.9 (4.8-10.8) x10^3/uL RBC 4.15 L (4.70-6.10) 10^6/uL Hgb 13.4 L (14.0-18.0) g/dL Hct 40.3 L (42.0-52.0) % MCV 97.2 H (80.0-94.0) fL MCH 32.4 H (27.0-31.0) pg MCHC 33.3 (32.0-36.0) g/dL RDW 17.1 H (12.0-15.0) % Plt Count 109 L (130-450) 10^3/uL MPV 9.5 (7.4-11.4) fL Neut # (Auto) 6.4 (1.5-6.6) 10^3/uL Lymph # (Auto) 0.7 L (1.5-3.5) 10^3/uL Livingston # (Auto) 0.8 (0.0-1.0) 10^3/uL Eos # (Auto) 0.0 (0.0-0.7) 10^3/uL Baso # (Auto) 0.0 (0.0-0.1) 10^3/uL Absolute Nucleated RBC 0.01 x10^3/uL Nucleated RBC % 0.2 /100WBC Sodium 139 (135-145) mmol/L Potassium 3.8 (3.5-5.0) mmol/L Chloride 108 (101-111) mmol/L Carbon Dioxide 20 L (21-32) mmol/L Anion Gap 11.0 (6-13) BUN 21 H (6-20) mg/dL Creatinine 1.0 (0.6-1.2) mg/dL Estimated GFR (MDRD) 71 L (>89) Glucose 135 H (70-100) mg/dL Calcium 8.6 (8.5-10.3) mg/dL Troponin I < 0.04 (<0.49) ng/mL ABX Reporting Has patient been on IV antibiotics over the past 48 hours?: Yes Assessment/Plan - Problem List (1) CAP (community acquired pneumonia) Impression: Conclusion/Plan: 06/10 99% sats on room air, no cough, fever, chill, WBC is normal 06/09 pt's WBC is normal now, 98% sats on room air. no fever, chill, cough. response well to the treatment continue antibiotics vital and lab monitor pt 06/08 pt's WBC is normal now, 99% sats on room air, response well to the treatment continue antibiotics vital and lab monitor pt Patient presented to the emergency department with generalized weakness. He is also been having coughing for the last week which appears to be worse with drinking fluids. Patient developed fever at home and had generalized weakness. On presentation to the emergency department the patient is not hypoxic but does have a leukocytosis and chest x-ray shows a left basilar infiltrate concerning for pneumonia. The patient's pneumonia severity index score is 103 for which a hospitalization is recommended. Patient is admitted for treatment of community acquired pneumonia. There is also concern for possible aspiration therefore patient will also be given coverage for aspiration pneumonia. Plan: IV antibiotics with ceftriaxone, azithromycin and clindamycin to cover community -acquired pneumonia and aspiration pneumonia Supplemental oxygen as needed IV fluids Physical therapy for generalized weakness (2) Generalized weakness Conclusion/Plan: continue PT/OT 06/09, continue PT/OT, PT/OT recommend previous living condition. plan d/c tomorrow. 06/08 PT evaluation Treat pneumonia with IV antibiotics and IV fluids Patient presented with generalized weakness. Patient at baseline is ambulatory without any assistance. Today the patient was barely able to stand up from his chair and was requiring assistance with ambulation. This occurred acutely but he did not have any focal deficits. It appears that his generalized weakness is secondary to ongoing pneumonia. 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 The patient's heart rate appears to be well-controlled in the 60s. Patient is not on any rate control agents. We will continue the patient's home dose of Pradaxa and get an echocardiogram to evaluate cardiac function (4) Hyperbilirubinemia Conclusion/Plan: The patient has hyperbilirubinemia with a total bilirubin of 2.0. This is elevated from being normal in September 2017. The patient does not appear to be jaundiced but given that he also has a thrombocytopenia we are concerned about possible liver disease. Therefore patient will get an abdominal ultrasound and we will continue to monitor his bilirubin. (5) Thrombocytopenia Conclusion/Plan: Patient has thrombocytopenia with a platelet count of 110. The patient's platelet count was in the normal range in November 2017. Given that he also has a elevated bilirubin and concern for the possibility of liver disease causing thrombocytopenia therefore we will get an abdominal ultrasound. The patient does not appear to be on any medications that would cause thrombocytopenia. We will continue to monitor the patient's platelets. (6) Hyperlipidemia Conclusion/Plan: Patient has a history of hyperlipidemia and is on a statin at home. While the patient is hospitalized will be continued on his home dose of statin. (7) pulmonary hypertension RVSP is 104 mmHG, it seems pt is without fluid retention in CXR, no edema on leg. continue support, O2 supple as needed (8) delirium/confusion pt present some confused. 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 Lujan. Dr. Lujan state she cannot do this kind of surgery, it usually require ENT or GI to do this kind of procedure. I discuss with pt's daughter, and pt's son in the law. They agree to have out- pt ENT for further evaluation and treatment (10) right facial droop order CT of head, followup pt seems no other focal neurological deficit pt is on Pradaxa 150mg bid continue neuro check (11) bradycardia pt's pulse is around 60 now from previous 50. pt is asymptomatic, walking with PT continue tele, vital monitor Qualifiers: Laterality: left Lung location: lower lobe of lung Qualified Code(s): J18.1 - Lobar pneumonia, unspecified organism
[2018-06-10] MEDS: SODIUM CHLORIDE FLUSH 0.9% 10 ML SYRINGE IVP PRN (19:54)
[2018-06-10] MEDS: ATORVASTATIN 10 MG TABLET PO SCH (20:06)
[2018-06-10] MEDS: LATANOPROST 0.005% OPHTH DROPS EACHEYE SCH (20:06)
[2018-06-11] MEDS: SODIUM CHLORIDE FLUSH 0.9% 10 ML SYRINGE IVP SCH ×3 (01:15→17:26)
[2018-06-11] MEDS: CLINDAMYCIN 900 MG/50 ML 50 ML IV SCH ×4 (01:15→19:15)
[2018-06-11 05:17] LABS: BASOPHILS # (AUTO) 0.1 10^3/uL (0.0-0.1); BASOPHILS % (AUTO) 0.6 %; EOSINOPHILS % (AUTO) 0.2 %; HGB - HEMOGLOBIN 12.8 g/dL (14.0-18.0); LYMPHOCYTES # (AUTO) 0.7 10^3/uL (1.5-3.5); LYMPHOCYTES % (AUTO) 8.5 %; MEAN CORPUSCULAR HEMOGLOBIN 32.2 pg (27.0-31.0); MEAN CORPUSCULAR HGB CONC 33.4 g/dL (32.0-36.0); MEAN CORPUSCULAR VOLUME 96.6 fL (80.0-94.0); MEAN PLATELET VOLUME 8.7 fL (7.4-11.4); MONOCYTES # (AUTO) 0.9 10^3/uL (0.0-1.0); MONOCYTES % (AUTO) 10.7 %; NEUTROPHILS # (AUTO) 6.5 10^3/uL (1.5-6.6); PLT - PLATELET COUNT 106 10^3/uL (130-450); RED BLOOD COUNT 3.98 10^6/uL (4.70-6.10); RED CELL DISTRIBUTION WIDTH 17.2 % (12.0-15.0); WHITE BLOOD COUNT 8.1 x10^3/uL (4.8-10.8)
[2018-06-11 05:23] LABS: CALCIUM 8.3 mg/dL (8.5-10.3); CREATININE 1.1 mg/dL (0.6-1.2)
[2018-06-11] MEDS: SACCHAROMYCES BOULARDII 250 MG CAPSULE PO SCH ×2 (08:23→17:26)
[2018-06-11] MEDS: cefTRIAXone 2 GM in SODIUM CHLORIDE 0.9% MINIBAG 100 ML IV SCH (09:43)
[2018-06-11] MEDS: DABIGATRAN 75 MG CAPSULE PO SCH ×2 (09:46→21:01)
[2018-06-11] MEDS: CALCIUM CARB (OYSTER SHELL) 500 MG TABLET PO SCH ×2 (09:46→21:00)
[2018-06-11] MEDS: CHOLECALCIFEROL 1,000 UNIT TABLET PO SCH (09:46)
[2018-06-11] MEDS: LISINOPRIL 20 MG TABLET PO SCH (09:46)
[2018-06-11] MEDS: FAMOTIDINE 20 MG TABLET PO SCH (09:46)
[2018-06-11] MEDS: POLYETHYLENE GLYCOL 3350 17 GM PACKET PO SCH (09:47)
[2018-06-11] MEDS: TIMOLOL 0.5% OPHTH DROPS EACHEYE SCH ×2 (09:47→21:01)
[2018-06-11] MEDS: MULTIVITAMIN TABLET PO SCH (09:47)
--- NOTE | 2018-06-11 17:59 | MRI Report ---
Procedure Date: 06/11/2018 Accession Number: [id number] / [id number] Procedure: MRI - Brain W/O CPT Code: FULL RESULT: EXAM: MRI BRAIN WITHOUT CONTRAST EXAM DATE: 06/11/2018 04:33 PM. CLINICAL HISTORY: Facial droop. COMPARISON: Prior CT head 06/10/2018. TECHNIQUE: Multiplanar, multisequence T1-weighted and fluid-sensitive MR sequences of the brain were performed. Sequences optimized for routine evaluation. Other: None. IV Contrast: None. Findings: Relevant images are indicated (image number, series number). There is no acute or subacute ischemic change in the brain. There is small hemosiderin deposition present right occipital lobe. Otherwise, no significant hemosiderin deposition in the brain. There is moderate/marked generalized brain atrophy, moderate/marked compensatory ventricular enlargement. There is marked scattered periventricular, some vertical white matter disease including marked bilateral pontine white matter disease. Marked midbrain atrophy. Pituitary, infundibulum unremarkable. Craniocervical junction, limited evaluation upper cervical cord negative. Impressions: 1. No acute or subacute ischemic change. 2. Moderate/marked generalized brain atrophy, marked midbrain atrophy. 3. Marked scattered dense white matter disease most likely related to chronic small vessel ischemic disease. RADIA
[2018-06-11] MEDS: SODIUM CHLORIDE FLUSH 0.9% 10 ML SYRINGE IVP PRN (20:25)
[2018-06-11] MEDS: ATORVASTATIN 10 MG TABLET PO SCH (21:00)
[2018-06-11] MEDS: LATANOPROST 0.005% OPHTH DROPS EACHEYE SCH (21:04)
[2018-06-12] MEDS: CLINDAMYCIN 900 MG/50 ML 50 ML IV SCH ×2 (02:38→09:53)
[2018-06-12] MEDS: SODIUM CHLORIDE FLUSH 0.9% 10 ML SYRINGE IVP SCH ×2 (02:39→08:59)
[2018-06-12 08:02] VITALS: BP 150/71
[2018-06-12] MEDS: cefTRIAXone 2 GM in SODIUM CHLORIDE 0.9% MINIBAG 100 ML IV SCH (08:58)
[2018-06-12] MEDS: CHOLECALCIFEROL 1,000 UNIT TABLET PO SCH (08:59)
[2018-06-12] MEDS: POLYETHYLENE GLYCOL 3350 17 GM PACKET PO SCH (08:59)
[2018-06-12] MEDS: FAMOTIDINE 20 MG TABLET PO SCH (08:59)
[2018-06-12] MEDS: DABIGATRAN 75 MG CAPSULE PO SCH (08:59)
[2018-06-12] MEDS: SACCHAROMYCES BOULARDII 250 MG CAPSULE PO SCH (08:59)
[2018-06-12] MEDS: MULTIVITAMIN TABLET PO SCH (08:59)
[2018-06-12] MEDS: LISINOPRIL 20 MG TABLET PO SCH (08:59)
[2018-06-12] MEDS: CALCIUM CARB (OYSTER SHELL) 500 MG TABLET PO SCH (09:04)
[2018-06-12] MEDS: TIMOLOL 0.5% OPHTH DROPS EACHEYE SCH (09:53)
--- NOTE | 2018-06-12 11:54 | PROVIDER PROGRESS NOTE ---
Subjective - Prog Note Date Prog Note Date: 06/11/18 Prog Note Time: 08:00 - Subjective Pt reports feeling: Improved Subjective: Al states that he does not wish to return home and feels that rehab would be helpful to both he and his . He denies any new symptoms such as shortness of breath, chest pain or pressure, nausea, vomiting, or a new cough. Current Medications - Current Medications Current Medications: Active Medications Acetaminophen (Tylenol) 650 mg PO Q4HR PRN PRN Reason: Pain 1 to 4 Albuterol/Ipratropium (Duoneb) 3 ml INH RTQID PRN PRN Reason: Wheezing Atorvastatin Calcium (Lipitor) 5 mg PO QPM [facility] Last Admin: 06/11/18 21:00 Dose: 5 mg Calcium Carbonate/Glycine (Oysco-500) 500 mg PO BID [facility] Last Admin: 06/12/18 09:04 Dose: 500 mg Cholecalciferol (Vitamin D3) 2,000 unit PO DAILY [facility] Last Admin: 06/12/18 08:59 Dose: 2,000 unit Dabigatran (Pradaxa) 150 mg PO BID [facility] Last Admin: 06/12/18 08:59 Dose: 150 mg Famotidine (Pepcid) 20 mg PO DAILY [facility] Last Admin: 06/12/18 08:59 Dose: 20 mg Fluticasone Propionate (Flonase) 1 sprays ELVIE BID PRN PRN Reason: Allergy Symptoms Ceftriaxone Sodium 2 gm/ (Sodium Chloride) 100 mls @ 200 mls/hr IV DAILY [facility] Last Infusion: 06/12/18 09:53 Dose: Infused Clindamycin Phosphate (Cleocin 900 Mg/50 Ml) 50 mls @ 50 mls/hr IV Q6H [facility] Last Infusion: 06/12/18 10:49 Dose: Infused Latanoprost (Xalatan Ophth Drops) 1 drops EACHEYE QPM [facility] Last Admin: 06/11/18 21:04 Dose: Not Given Lisinopril (Zestril) 20 mg PO DAILY [facility] Last Admin: 06/12/18 08:59 Dose: 20 mg Multivitamins (Theragran) 1 tab PO DAILY [facility] Last Admin: 06/12/18 08:59 Dose: 1 tab Nitroglycerin (Nitrostat) 0.4 mg SL Q5MIN PRN PRN Reason: Chest Pain Ondansetron HCl (Zofran Inj) 4 mg IVP Q6HR PRN PRN Reason: Nausea / Vomiting Polyethylene Glycol (Miralax) 17 gm PO DAILY [facility] Last Admin: 06/12/18 08:59 Dose: Not Given Prochlorperazine Edisylate (Compazine Inj) 10 mg IVP Q6HR PRN PRN Reason: Nausea / Vomiting Saccharomyces Boulardii (Florastor) 250 mg PO BIDWM [facility] Last Admin: 06/12/18 08:59 Dose: 250 mg Sodium Chloride (Normal Saline Flush 0.9%) 10 ml IVP PRN PRN PRN Reason: NEEDED PER PROVIDER ORDERS Last Admin: 06/11/18 20:25 Dose: 10 ml Sodium Chloride (Normal Saline Flush 0.9%) 10 ml IVP 0100,0900,1700 [facility] Last Admin: 06/12/18 08:59 Dose: 10 ml Timolol Maleate (Timoptic 0.5% Ophth Drops) 1 drops EACHEYE BID [facility] Last Admin: 06/12/18 09:53 Dose: 1 drops Simvastatin 10 mg PO QPM 06/07/18 Calcium Carbonate [Airn-Xld-056] 500 mg PO BID 06/08/18 Cholecalciferol (Vitamin D3) [Vitamin D] 2,000 unit PO DAILY 06/08/18 Dabigatran Etexilate Mesylate [Pradaxa] 150 mg PO BID 06/08/18 Fluticasone [Flonase] 1 sprays ELVIE BID PRN 06/08/18 Latanoprost 0.005% Ophth Drops [Xalatan Ophth Drops] 1 drops EACHEYE QPM Multivitamin [Theragran] 1 each PO DAILY 06/08/18 Nitroglycerin [Nitrostat] 0.4 mg SL Q5MIN PRN 06/08/18 Ramipril [Altace] 5 mg PO DAILY 06/08/18 Timolol 0.5% Ophth Drops [Timoptic 0.5% Ophth Drops] 1 drops EACHEYE BID Objective - Vital Signs/Intake & Output Reviewed Vital Signs: Yes Vital Signs: Vital Signs x48h Temp Pulse Pulse Resp BP Pulse Ox 06/12/18 08:00 36.2 C L 55 L 18 150/71 H 98 08/04/18 07:50 52 L 18 Intake & Output: Intake & Output 06/09/18 06/10/18 06/11/18 06/12/18 23:59 23:59 23:59 23:59 Intake Total 4126.25 2247.5 1140 610 Output Total 1300 1075 950 Balance 2826.25 1172.5 1140 -340 - Objective General Appearance: positive: No acute distress, Alert Eyes Bilateral: positive: Normal inspection Eyes: OU Conjunctivae pale, OU Scleral icterus, OU Other (very dry with minimal blinking, bilaterally) ENT: positive: ENT inspection nml, Pharynx nml, Pharyngeal erythema, Dry mucous membranes Neck: positive: Nml inspection, Thyroid nml, No JVD, Stiff neck Respiratory: positive: Chest non-tender, No respiratory distress, Other ( diminished with bilateral low lobe crackles.) Cardiovascular: positive: Regular rate & rhythm, Systolic murmur, Decreased pulse(s) Peripheral Pulses: 1+ Radial (R), 1+ Radial (L) Abdomen: positive: Non-tender, Nml bowel sounds, Other (rounded, soft) Back: positive: Nml inspection Skin: positive: No rash, Warm, Dry Extremities: positive: Non-tender, Pedal edema (chronic, dependent BLE), Joint swelling Neurologic/Psychiatric: positive: Oriented x3, Motor nml, Weakness, Sensory loss , Depressed mood/affect Reflexes: Bicep (R): 2+, Bicep (L): 2+ - Lab Results Fish Bones: 06/11/18 04:55 06/11/18 04:55 ABX Reporting Has patient been on IV antibiotics over the past 48 hours?: No Assessment/Plan - Problem List (1) CAP (community acquired pneumonia) Impression: Upon presentation to the ED the had reports of a worsening cough for the past one week, that appeared worse after drinking fluids. The patient was not hypoxic, but did have a leukocytosis and chest x-ray showed a left basilar infiltrate concerning for pneumonia. A pneumonia severity index score was calculated at 103 for which a hospitalization is recommended. Aspiration pneumonia was suspected at the time of admission, and the patient was given IV azithromycin and clindamycin, IV fluids, and physical therapy was ordered due to generalized weakness. Today the patient is found to have an oxygen saturation on room air of 99%. He had no cough, fevers, chills, and WBC is now normal. Plan: Continue to monitor for aspiration and plan for discharge in the AM. Qualifiers: Laterality: left Lung location: lower lobe of lung Qualified Code(s): J18.1 - Lobar pneumonia, unspecified organism (2) Generalized weakness Impression: The patient has had a slow decline in general function and has a shuffled gait when ambulatory. Physical and occupatinoal therapies continued to work with him and suggest detention placement. Social work is making referrals. The patient is in agreement that going back home with his weakness may lead to a fall. The patient is finishing with IV antibiotics and has been eating a fair amount. Plan: continue PT/OT, await placement recommendations, referrals. (3) Atrial fibrillation Impression: Patient has chronic atrial fibrillation and is on Pradaxa for anticoagulation. The patient's heart rate appears to be well-controlled in the 60s. Patient is not on any rate control agents. We will continue the patient's home dose of Pradaxa. An echocardiogram shows a reduced EF at 50-55%, some valve abnormalities, and severe right sided HF with an RVSP at rest of 104 mmHg. Plan: Continue medications, and monitor vital signs. Qualifiers: Atrial fibrillation type: chronic Qualified Code(s): I48.2 - Chronic atrial fibrillation (4) Moderate to severe pulmonary hypertension Impression: Echocardiogram results show severe cor pulmonale with an RVSP at rest of 104 mmHG and an LV septal wall that is flattened in diastole. The patient does not require oxygen, so I suspect this is not a new problem. The patient appears to have a chronic enlarged abdominal girth and BLE dependent edema, (pitting). Plan: Give oxygen as needed, order LISANDRO hose, and monitor for fluid overload.
--- NOTE | 2018-06-12 11:58 | Discharge Plan ---
"Discharge Plan for SNF / [facility] - DC Plan and Transition Orders Disposition: 06 Home Health Service Condition: Good SNF Transition Orders: Admit to: [facility] under the care of Enrique Rogers Discharge Diagnosis: Aspiration pneumonia, weakness, chronic atrial fibrillation, hyperlipidemia, severe pulmonary HTN, hypertension, CHF with reduced EF, severe mitral regurg, severe mitral prolapse, and aortic root dilation, negrito Santos diverticulum, and debility. Medicare Certification: I certify that Post Hospital detention care is medically necessary on a continuing basis for any of the conditions for which she/he is receiving care during hospitalization. Notify PCP of admission and forward orders to primary provider for signature. Weight on admission and weekly. Call PCP immediately if weight increases by 10 pounds or if patient develops dyspnea, chest pain/tightness or edema. Allergies and Adverse Reactions: Allergies Allergy/AdvReac Type Severity Reaction Status Date / Time No Known Drug Allergies Allergy Verified 06/07/18 19:16 - Medications New Prescriptions: Clindamycin HCl [Clindamycin 150MG CAP] 450 mg PO TID 5 Days #45 capsule Saccharomyces Boulardii [Florastor] 250 mg PO BID #30 capsule Spironolactone 12.5 mg PO DAILY #15 tablet - Diet Type: Geriatric Texture: Regular May have monthly special meal: No - Therapies | Activity Therapy: Evaluation | Treat if indicated: PT, OT Rehabilitation Potential: Maximize functional status, Return to independent living, Maintain present ADL Functional Activity: Activity as Tolerated Weight Bearing: Full Weight Assistance Devices: Walker"
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
== END 2018-06-12 13:33 | disposition home health service (06) | DRG 178 ==
LOC: ED 19:06 → MS2 23:26
PROVIDERS: ADMIT Internal Medicine; ATTEND Nurse Practitioner
DX: J18.1 Lobar pneumonia, unspecified organism (principal); E86.0 Dehydration; I48.91 Unspecified atrial fibrillation; J69.0 Pneumonitis due to inhalation of food and vomit; I50.20 Unspecified systolic (congestive) heart failure; Q39.6 Congenital diverticulum of esophagus; I48.2 Chronic atrial fibrillation; E78.5 Hyperlipidemia, unspecified; D69.6 Thrombocytopenia, unspecified; I27.81 Cor pulmonale (chronic); I11.0 Hypertensive heart disease with heart failure; I27.20 Pulmonary hypertension, unspecified; F03.90 Unspecified dementia, unspecified severity, without behavioral disturbance, psychotic disturbance, mood disturbance, and anxiety; I34.1 Nonrheumatic mitral (valve) prolapse; I34.0 Nonrheumatic mitral (valve) insufficiency; E80.6 Other disorders of bilirubin metabolism; R29.810 Facial weakness; R00.1 Bradycardia, unspecified; Z51.5 Encounter for palliative care; Z79.01 Long term (current) use of anticoagulants; Z91.81 History of falling; Z87.891 Personal history of nicotine dependence; Z79.899 Other long term (current) drug therapy
CPT/HCPCS: 36415; 70450; 70551; 71045; 74230; 76700; 80048; 80053; 81001; 81003; 83690; 84484; 85025; 87086; 93005; 93306; 94640; 96365; 96366; 96375; 99284

== ENCOUNTER 2018-07-07 14:34 | Outpatient (CLI) | payer MEDICARE, OTHER ==
[2018-07-07] MEDS ORDERED: IOPAMIDOL-300 100 ML VIAL ONE (14:45)
[2018-07-07] MEDS ORDERED: IOPAMIDOL-300 100 ML VIAL IVP ONE (15:32)
--- NOTE | 2018-07-09 09:43 | CT Report ---
Reason: LOCALIZED SWELLING, MASS AND LUMP, NECK Procedure Date: 07/07/2018 Accession Number: [id number] / [id number] Procedure: CT - Neck Soft Tissue W/ CPT Code: FULL RESULT: EXAM: CT SOFT TISSUE NECK WITH CONTRAST. EXAM DATE: 07/07/2018 03:17 PM. HISTORY: Potential Hussein-Kirsten diverticulum, history of difficulty swallowing. COMPARISONS: Modified barium swallow study 06/09/2018. TECHNIQUE: Routine soft tissue neck CT protocol. Reconstructions: Coronal and sagittal. IV contrast: Isovue 300, 80mL. In accordance with CT protocol optimization, one or more of the following dose reduction techniques were utilized for this exam: automated exposure control, adjustment of mA and/or KV based on patient size, or use of iterative reconstructive technique. FINDINGS: Visualized intracranial contents shows atherosclerotic calcifications of bilateral cavernous carotid arteries. Limited evaluation of the intracranial arterial and dural venous sinus structures are unremarkable. There is no mass, mass effect or midline shift or hydrocephalus. Orbits appear unremarkable. Paranasal sinuses and mastoid air cells appear well aerated, without abnormalities. Infratemporal fossa, [employer] space, parapharyngeal space and retropharyngeal space appear normal. Tongue base, floor of mouth, and mobile tongue appear normal. Parotid glands and submandibular glands appear normal. There is no evidence for sialolithiasis, or sialoadenitis. Nasopharyngeal, oropharyngeal, hypopharyngeal mucosa appear unremarkable. Vallecula and piriform sinus appear normal. Larynx, subglottic trachea appear normal. Scattered subcentimeter hypodensities are seen in bilateral thyroid glands. Thyroid gland size appear within normal. Visualized aortic arch and pulmonary artery appear unremarkable. Bilateral pleural effusions. Asymmetric increased interstitial opacities in the posterior left upper lobe and superior segment left lower lobe. Carotid space appear unremarkable. Minimal atherosclerotic calcifications of bilateral carotid bulbs, without significant stenosis. Visualized bilateral vertebral arteries appear unremarkable. Mild multilevel degenerative changes of the cervical spine. No suspicious lytic or sclerotic osseous lesions. IMPRESSION: 1. No neck mass or adenopathy. No diverticulum appreciated. 2. Small bilateral pleural effusions. Suggestion of air space/interstitial opacity in the visible left lung posteriorly. RADIA
== END 2018-07-07 14:35 | disposition home or self-care (01) ==
LOC: DI 14:34
PROVIDERS: ATTEND Otolaryngology
DX: R13.19 Other dysphagia (principal); R05 Cough; K22.5 Diverticulum of esophagus, acquired; R22.1 Localized swelling, mass and lump, neck
CPT/HCPCS: 70491; Q9967

== ENCOUNTER 2018-08-15 13:27 | Inpatient (IN) | payer MEDICARE, OTHER ==
--- NOTE | 2018-08-15 14:21 | ED Physician Documentation ---
History of Present Illness - Stated complaint Stated Complaint: FEVER,CHILLS,WEAKNESS - Chief complaint Chief Complaint: General - History obtained from History obtained from: Patient, Family - History of Present Illness Timing: Today (88-year-old gentleman history of atrial fibrillation on Pradaxa and admission about 2 months ago for community acquired pneumonia presents with 1 day of generalized weakness with a fever at home that has resolved associated with a productive cough and a tinge of blood in it. He also has a wound on the left lower extremity that has been there for quite some time and is not really getting any worse but is not improving either.) Review of Systems Ten Systems: 10 systems reviewed and negative Constitutional: reports: Fever, Chills, Fatigue Cardiac: denies: Chest pain / pressure, Palpitations Respiratory: reports: Cough. denies: Dyspnea GI: reports: Abdominal Pain (Gone now), Diarrhea (Chronic). denies: Nausea, Vomiting PD PAST MEDICAL HISTORY - Past Medical History Cardiovascular: Hypertension, High cholesterol, Atrial fibrillation Respiratory: None Neuro: None Endocrine/Autoimmune: None GI: Other : None HEENT: Macular degeneration Psych: None Musculoskeletal: Osteoarthritis Derm: None - Past Surgical History Past Surgical History: Yes Ortho: Hip replacement HEENT: Cataracts, Tonsil/Adenoidectomy - Present Medications Home Medications: Ambulatory Orders Medication Instructions Recorded Confirmed Simvastatin 10 mg PO QPM 06/07/18 06/08/18 Calcium Carbonate [[id number]] 500 mg PO BID 06/08/18 06/08/18 Cholecalciferol (Vitamin D3) 2,000 unit PO DAILY 06/08/18 06/08/18 [Vitamin D] Dabigatran Etexilate Mesylate 150 mg PO BID 06/08/18 06/08/18 [Pradaxa] Fluticasone [Flonase] 1 sprays ELVIE BID PRN 06/08/18 06/08/18 Latanoprost 0.005% Ophth Drops 1 drops EACHEYE QPM 06/08/18 06/08/18 [Xalatan Ophth Drops] Multivitamin [Theragran] 1 each PO DAILY 06/08/18 06/08/18 Nitroglycerin [Nitrostat] 0.4 mg SL Q5MIN PRN 06/08/18 06/08/18 Ramipril [Altace] 5 mg PO DAILY 06/08/18 06/08/18 Timolol 0.5% Ophth Drops [Timoptic 1 drops EACHEYE BID 06/08/18 06/08/18 0.5% Ophth Drops] Polyethylene Glycol 3350 [Miralax] 17 gm PO DAILY packet 06/12/18 Saccharomyces Boulardii [Florastor] 250 mg PO BID #30 capsule 06/12/18 Spironolactone 12.5 mg PO DAILY #15 tablet 06/12/18 - Allergies Allergies/Adverse Reactions: Allergies Allergy/AdvReac Type Severity Reaction Status Date / Time No Known Drug Allergies Allergy Verified 08/15/18 13:36 - Social History Does the pt smoke?: No Smoking Status: Never smoker Does the pt drink ETOH?: No Does the pt have substance abuse?: No - Family History Family history: reports: Non contributory - Immunizations Immunizations are current?: Yes PD ED PE NORMAL - Vitals Vital signs reviewed: Yes - General General: Alert and oriented X 3, No acute distress - HEENT HEENT: PERRL, EOMI - Neck Neck: Supple, no meningeal sign, No bony TTP - Cardiac Cardiac: Other (Regular although he does have a history of a-fib. He has a loud, 4/6 systolic murmur heard best at the left upper sternal border which he says he has had since childhood.) - Respiratory Respiratory: Other (Diminished at the right base with crackles there) - Abdomen Abdomen: Normal bowel sounds, Soft, Non tender - Back Back: No CVA TTP, No spinal TTP - Derm Derm: Normal color, Warm and dry - Extremities Extremities: Other (There is a very broad but shallow ulcer On the anterior left garcia without evidence of current infection.) - Neuro Neuro: Alert and oriented X 3, Normal speech Results - Vitals Vitals: Vital Signs - 24 hr 08/15/18 08/15/18 13:31 14:06 Temperature 37.0 C Heart Rate 84 74 Respiratory 16 16 Rate Blood Pressure 150/62 H 119/72 O2 Saturation 93 94 Oxygen O2 Source Room air - Rads (name of study) 2v chest Radiology: EMP read contemporaneously (R base PNA) PD MEDICAL DECISION MAKING - ED course ED course: This is an 88-year-old gentleman with history of heart disease and A. fib who presents with right lower lobe pneumonia. He is treated with IV antibiotics. He is very weak and will need to be admitted for further evaluation and treatment. - Sepsis Event Vital Signs: Vital Signs - 24 hr 08/15/18 08/15/18 13:31 14:06 Temperature 37.0 C Heart Rate 84 74 Respiratory 16 16 Rate Blood Pressure 150/62 H 119/72 O2 Saturation 93 94 Oxygen O2 Source Room air Departure - Departure Disposition: [facility] DC/Xfer Clinical Impression: CAP (community acquired pneumonia) Qualifiers: Laterality: right Lung location: lower lobe of lung Qualified Code(s): J18.1 - Lobar pneumonia, unspecified organism Condition: Serious
[2018-08-15 14:35] LABS: BASOPHILS % (AUTO) 0.3 %; BILIRUBIN,URINE NEGATIVE (NEGATIVE); GLUCOSE, URINE (UA) NEGATIVE (NEGATIVE); HGB - HEMOGLOBIN 11.9 g/dL (14.0-18.0); KETONES,URINE (UA) NEGATIVE (NEGATIVE); LEUKOCYTE ESTERASE, URINE NEGATIVE (NEGATIVE); LYMPHOCYTES # (AUTO) 0.5 10^3/uL (1.5-3.5); LYMPHOCYTES % (AUTO) 2.9 %; MEAN CORPUSCULAR HEMOGLOBIN 31.9 pg (27.0-31.0); MEAN CORPUSCULAR HGB CONC 33.3 g/dL (32.0-36.0); MEAN CORPUSCULAR VOLUME 95.8 fL (80.0-94.0); MEAN PLATELET VOLUME 8.1 fL (7.4-11.4); MONOCYTES # (AUTO) 0.7 10^3/uL (0.0-1.0); MONOCYTES % (AUTO) 4.2 %; NEUTROPHILS # (AUTO) 15.1 10^3/uL (1.5-6.6); NEUTROPHILS % (AUTO) 92.6 %; NITRITE,URINE NEGATIVE (NEGATIVE); OCCULT BLOOD,URINE SMALL (NEGATIVE); PLT - PLATELET COUNT 152 10^3/uL (130-450); PROTEIN,URINE 30 mg/dL (NEGATIVE); RED BLOOD COUNT 3.72 10^6/uL (4.70-6.10); RED CELL DISTRIBUTION WIDTH 16.7 % (12.0-15.0); UROBILINOGEN,URINE 0.2 (NORMAL) E.U./dL (NORMAL); WHITE BLOOD COUNT 16.3 x10^3/uL (4.8-10.8)
[2018-08-15 14:38] LABS: CLARITY,URINE CLEAR (CLEAR)
[2018-08-15 14:52] LABS: ALBUMIN 3.6 g/dL (3.2-5.5); ALBUMIN/GLOBULIN RATIO 1.2 (1.0-2.2); CALCIUM 8.8 mg/dL (8.5-10.3); CREATININE 0.8 mg/dL (0.6-1.2); TOTAL PROTEIN 6.6 g/dL (6.7-8.2)
[2018-08-15 14:53] LABS: BACTERIA,URINE None Seen /HPF (None Seen); RBC,URINE 0-5 /HPF (0-5); SQUAMOUS EPITHELIAL CELL,UR RARE Squamous (<= Few)
[2018-08-15 14:54] LABS: CASTS, URINE 0-2 Hyaline Casts /LPF
--- NOTE | 2018-08-15 15:17 | XRAY Report ---
Reason: cough fever Procedure Date: 08/15/2018 Accession Number: [id number] / [id number] Procedure: XR - Chest 2 View X-Ray CPT Code: 23137 FULL RESULT: EXAM: CHEST RADIOGRAPHY 2 VIEWS EXAM DATE: 08/15/2018. CLINICAL HISTORY: Cough. Fever. COMPARISON: 07/01/2018. TECHNIQUE: AP and lateral views. FINDINGS: Lungs/Pleura: Normal vasculature. New alveolar infiltrate in the medial right lower lobe. No pleural fluid or pneumothorax. Mediastinum: Cardiomegaly and aortic atherosclerosis are unchanged. Otherwise normal mediastinal contours. Bones: Mild degenerative changes of the shoulders. No acute abnormality visible. IMPRESSION: Medial right lower lobe consolidation occurring since 07/01/2018, consistent with pneumonia. Cardiomegaly is unchanged. RADIA
[2018-08-15] MEDS ORDERED: cefTRIAXone 2 GM in SODIUM CHLORIDE 0.9% MINIBAG 100 ML IV STA (15:35)
[2018-08-15] MEDS ORDERED: AZITHROMYCIN INJ 500 MG in SODIUM CHLORIDE 0.9% 250 ML IV STA (15:35)
[2018-08-15] MEDS ORDERED: ONDANSETRON ODT 4 MG TABLET TL PRN (16:19)
[2018-08-15] MEDS ORDERED: ONDANSETRON 4 MG/2 ML VIAL IVP PRN (16:19)
[2018-08-15] MEDS ORDERED: ACETAMINOPHEN 325 MG TABLET PO PRN (16:19)
[2018-08-15] MEDS ORDERED: oxyCODONE 5 MG TABLET PO PRN (16:19)
[2018-08-15] MEDS ORDERED: ALBUTEROL NEB 2.5 MG/3 ML INH PRN (16:21)
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
[2018-08-15] MEDS ORDERED: CLINDAMYCIN 900 MG/50 ML 50 ML IV SCH ×2 (17:00)
[2018-08-15] MEDS: SODIUM CHLORIDE 0.9% 1,000 ML IV SCH (18:00)
[2018-08-15] MEDS: SACCHAROMYCES BOULARDII 250 MG CAPSULE PO SCH (18:39)
[2018-08-15] MEDS: CLINDAMYCIN 900 MG/50 ML 50 ML IV SCH (18:40)
--- NOTE | 2018-08-15 18:51 | ADVANCE CARE PLANNING NOTE ---
Advance Care Planning - Date/Time Date: 08/15/18 Time: 18:46 - Purpose of encounter Text: To establish his goals and understanding of his disease process over the last year - Parties in attendance Parties in attendance: Daughter, patient, and hospitalist - Decisional capacity Decisional capacity of: patient is intact. Alert, oriented. 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 Been to his for many decades. He finally retired and was living in [facility]. As he and his got older and needed more care they [place] 2017 to be closer to their daughter. Even though he has Parkinson's disease, he has been exercising 45 minutes a day, 7 days a week. Then in summer 2017 he became ill with pneumonia and weakness. 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 On top of that he has Parkinson's disease. He really has had a hard time acknowledging how much the weakness from the pneumonia and the Parkinson's disease has left him unable to care for himself anymore. He is living in an assisted living facility but keeps on hoping that he will get enough strength W will eventually leave the assisted facility. He does not want to acknowledge that the Parkinson's disease will continue to deteriorate his physical status and he will get weaker and weaker not stronger. 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 He used to love to read. Loves reading World War II books. But cannot watch TV, nor can he read a book. He still loves spending time with his family. His daughter is accompanying him today. While he acknowledges that his quality of life is drastically diminished, he still feels as if he should not give up. He does not want to acknowledge how disabled he is become. But he does know that he does not want to be a burden to his family. He says that if he becomes so dependent on someone that he can never get out of bed he does not want to continue living. He would want to either do hospice or palliative care. - Objective/Medical story Objective/Medical Story: The patient is described as an elderly gentleman who was living independently with his until May of this year. He is described as exercising 7 days a week. He has a history of Parkinson's disease with severe muscle deconditioning. 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 From hospitalization he went to live at [facility] for respite care. He is still a resident of an assisted living facility. For the diverticulum he was seen by Lane Varela MD (who is at [facility]) on July 19. 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 The ENT was waiting for a call from the textile examiner. And then it would be decided if he was a surgical candidate or not. There are no further notes from the ear nose and throat MD in his primary care provider chart. Dr. Ruiz did see the patient August 02 and encouraged him to chin tuck with eating or swallowing. He has been seen by his primary care provider on August 11 and August 02. He had been seen in a walk-in clinic for a wound on his left lower leg. In the walk-in clinic urged him to be seen by his primary care provider in follow-up. He had already been seen August 02 for the same wound by his primary care provider. At that time it was Dr. Ruiz. He had already been on Bactrim. He was seen by Dr. Teixeira with the second visit and was described as an elderly white male ambulating, using a walker. Accompanied by his daughter. On the lateral aspect of the left leg he had a blister which had ruptured and the skin had cracked. It seemed a little macerated. But there is no surrounding erythema or lymphangitis. He was instructed to take the dressing off after his evening meal and leave the dressing off and exposed to air. At bedtime clean it with warm soap and water and redressed without applying any type of cream or ointment and was to be seen again in 7-10 days. He is to see cardiology at [facility]. But overall he was felt to have been stable from his cardiac status and the daughter was asking if it was possible for Dr. Ruiz to refill his Pradaxa and blood pressure meds instead of going all the way to [facility]. With his Parkinson's, he is slowly getting worse. He has a mask like face ease and a shuffling gait. MRI June 11, 2018 shows no acute or subacute ischemic changes. There is moderate to marked generalized brain atrophy and marked midbrain atrophy. Some scattered dense white matter disease related to chronic small vessel ischemic disease. He was briefly offered a trial of a dopaminergic agent. However since the patient's symptoms did not warrant risk versus benefit, medicine was not prescribed. In the last few days has had increasing cough. There is no described aspiration. Yesterday he had fever with his cough and had a little hemoptysis. That is gone away but today he was so tired, he came to the emergency room. Temperature is 37. He is 93% on room air. White cell count is elevated at 16.3. And chest x-ray does show a right middle lobe consolidation new from July 01, 2018. Not only is a consistent with pneumonia but also aspiration in its anatomic distribution. - Goals of Care Goals of care determinations: He says that I have put a lot of ideas into his mind. He has not thought a lot about of the questions I have asked. He says is uncomfortable to go there. His daughter gently supports him and says that "dad, you really need to make some decisions". She is hoping that he will transition to palliative care and full DNR status. I think she is accepting of his disease status and his disease progression he is not. He promises to think about these things. Right now his pulsed form is full code. When I explained to him what a full code means he does not want that done. But he is very reluctant about filling out a new pulsed form. He would like to talk about it more with his daughter and . - Plan Plan: Discussed with and daughter DNR status Get something like a Rebeca or an iPad and start downloading pod casts on World War II Download audible books on the Rebeca that will read aloud to him. He is really interested in that. Rediscuss advanced care planning in the next few days to see if he is ready to have more conversations. - Code Status Code Status: Do Not Attempt Resuscitation - Time Spent on Advance Care Planning Time spent on advance care plannin minutes.
[2018-08-15] MEDS: SODIUM CHLORIDE FLUSH 0.9% 10 ML SYRINGE IVP SCH (19:55)
[2018-08-15] MEDS: ZINC OXIDE 20% OINT 28.35 GM TUBE TOP PRN (22:18)
[2018-08-16] MEDS: SODIUM CHLORIDE FLUSH 0.9% 10 ML SYRINGE IVP SCH ×3 (01:06→17:14)
[2018-08-16] MEDS: CLINDAMYCIN 900 MG/50 ML 50 ML IV SCH ×3 (01:56→18:37)
[2018-08-16] MEDS: SODIUM CHLORIDE 0.9% 1,000 ML IV SCH (04:24)
[2018-08-16] MEDS: ZINC OXIDE 20% OINT 28.35 GM TUBE TOP PRN (04:58)
[2018-08-16 05:04] LABS: VBG BASE EXCESS 1.3 mmol/L (-2 - +2); VBG PCO2 35.6 mmHg (41-51); VBG PH 7.462 (7.31-7.41); VBG PO2 45.4 mmHg (25-47)
[2018-08-16 05:08] LABS: BASOPHILS % (AUTO) 0.4 %; EOSINOPHILS % (AUTO) 0.4 %; HGB - HEMOGLOBIN 10.4 g/dL (14.0-18.0); LYMPHOCYTES # (AUTO) 0.8 10^3/uL (1.5-3.5); LYMPHOCYTES % (AUTO) 7.4 %; MEAN CORPUSCULAR HEMOGLOBIN 31.6 pg (27.0-31.0); MEAN CORPUSCULAR HGB CONC 32.4 g/dL (32.0-36.0); MEAN CORPUSCULAR VOLUME 97.8 fL (80.0-94.0); MEAN PLATELET VOLUME 8.5 fL (7.4-11.4); MONOCYTES # (AUTO) 0.6 10^3/uL (0.0-1.0); MONOCYTES % (AUTO) 5.2 %; NEUTROPHILS # (AUTO) 9.6 10^3/uL (1.5-6.6); NEUTROPHILS % (AUTO) 86.6 %; PLT - PLATELET COUNT 135 10^3/uL (130-450); RED BLOOD COUNT 3.27 10^6/uL (4.70-6.10); RED CELL DISTRIBUTION WIDTH 17.3 % (12.0-15.0); WHITE BLOOD COUNT 11.1 x10^3/uL (4.8-10.8)
[2018-08-16 05:17] LABS: CALCIUM 8.2 mg/dL (8.5-10.3); CREATININE 0.8 mg/dL (0.6-1.2)
[2018-08-16] MEDS: SACCHAROMYCES BOULARDII 250 MG CAPSULE PO SCH ×2 (09:24→17:14)
[2018-08-16] MEDS: POLYETHYLENE GLYCOL 3350 17 GM PACKET PO SCH (09:24)
[2018-08-16] MEDS: MULTIVITAMIN W/MINERALS TABLET PO SCH (14:51)
[2018-08-16] MEDS: cefTRIAXone 2 GM in SODIUM CHLORIDE 0.9% MINIBAG 100 ML IV SCH (16:09)
[2018-08-16] MEDS: AZITHROMYCIN INJ 500 MG in SODIUM CHLORIDE 0.9% 250 ML IV SCH (17:14)
[2018-08-17] MEDS: SODIUM CHLORIDE FLUSH 0.9% 10 ML SYRINGE IVP SCH ×4 (00:02→23:54)
[2018-08-17] MEDS: SODIUM CHLORIDE FLUSH 0.9% 10 ML SYRINGE IVP PRN ×2 (01:47→20:18)
[2018-08-17] MEDS: CLINDAMYCIN 900 MG/50 ML 50 ML IV SCH ×3 (01:47→19:09)
[2018-08-17] MEDS: ZINC OXIDE 20% OINT 28.35 GM TUBE TOP PRN ×2 (01:53→21:57)
[2018-08-17 05:45] LABS: BASOPHILS % (AUTO) 0.2 %; HGB - HEMOGLOBIN 10.5 g/dL (14.0-18.0); LYMPHOCYTES # (AUTO) 0.7 10^3/uL (1.5-3.5); LYMPHOCYTES % (AUTO) 5.4 %; MEAN CORPUSCULAR HEMOGLOBIN 31.7 pg (27.0-31.0); MEAN CORPUSCULAR HGB CONC 32.6 g/dL (32.0-36.0); MEAN CORPUSCULAR VOLUME 97.3 fL (80.0-94.0); MEAN PLATELET VOLUME 8.5 fL (7.4-11.4); MONOCYTES # (AUTO) 0.7 10^3/uL (0.0-1.0); MONOCYTES % (AUTO) 5.4 %; NEUTROPHILS # (AUTO) 10.9 10^3/uL (1.5-6.6); PLT - PLATELET COUNT 145 10^3/uL (130-450); RED CELL DISTRIBUTION WIDTH 17.3 % (12.0-15.0); WHITE BLOOD COUNT 12.3 x10^3/uL (4.8-10.8)
[2018-08-17 05:53] LABS: CALCIUM 8.1 mg/dL (8.5-10.3); CREATININE 0.9 mg/dL (0.6-1.2)
[2018-08-17] MEDS: SACCHAROMYCES BOULARDII 250 MG CAPSULE PO SCH ×2 (10:11→17:33)
[2018-08-17] MEDS: MULTIVITAMIN W/MINERALS TABLET PO SCH (10:11)
[2018-08-17] MEDS: POLYETHYLENE GLYCOL 3350 17 GM PACKET PO SCH (10:25)
[2018-08-17] MEDS: cefTRIAXone 2 GM in SODIUM CHLORIDE 0.9% MINIBAG 100 ML IV SCH (16:50)
[2018-08-17] MEDS: AZITHROMYCIN INJ 500 MG in SODIUM CHLORIDE 0.9% 250 ML IV SCH (17:42)
--- NOTE | 2018-08-17 18:26 | PROVIDER PROGRESS NOTE ---
Assessment/Plan - Problem List (1) CAP (community acquired pneumonia) Qualifiers: Laterality: right Lung location: lower lobe of lung Qualified Code(s): J18.1 - Lobar pneumonia, unspecified organism Assessment/Plan: Pt comfortable and stable. Will be transitioning to po antibiotics. Poss DCh to [facility] Living Facility in am. I updated , in the room. (2) Esophageal diverticulum Assessment/Plan: Continue dietary adjustments. Not a surgical candidate, due to cardiovascular status. I discussed this with pt and . (3) Parkinson disease Assessment/Plan: Stable (4) Chronic atrial fibrillation Assessment/Plan: STable HR. Continue present meds. (5) Generalized weakness Assessment/Plan: Patient starting PT. He will need further outpt rehab for strengthening. - Current Meds Current Meds: Current Medications Generic Name Dose Route Start Last Admin Trade Name Freq PRN Reason Stop Dose Admin Albuterol 2.5 mg 08/15/18 16:21 08/16/18 23:00 INH 2.5 mg Q4HR PRN Administration Wheezing Azithromycin 500 mg/ Sodium 250 mls @ 250 mls/hr 08/16/18 17:00 08/17/18 17:42 Chloride IV 250 mls/hr Q24H ALICIA Administration Ceftriaxone Sodium 2 gm/ 100 mls @ 200 mls/hr 08/16/18 16:00 08/17/18 17:42 Sodium Chloride IV Infused Q24H ALICIA Infusion Clindamycin Phosphate 50 mls @ 50 mls/hr 08/15/18 18:00 08/17/18 11:27 Cleocin 900 Mg/50 Ml IV Infused Q8H ALICIA Infusion Multi-Ingredient Ointment 1 applic 08/15/18 20:37 08/17/18 01:53 Zinc Oxide TOP 1 applic PRN PRN Administration Skin Care Multivitamins/Minerals 1 tab 08/16/18 12:00 08/17/18 10:11 Theragran M PO 1 tab DAILYWM ALICIA Administration Polyethylene Glycol 17 gm 08/16/18 09:00 08/17/18 10:25 Miralax PO Not Given DAILY ALICIA Saccharomyces Boulardii 250 mg 08/15/18 17:00 08/17/18 17:33 Florastor PO 250 mg BIDWM ALICIA Administration Sodium Chloride 10 ml 08/15/18 16:19 08/17/18 01:47 Normal Saline Flush 0.9% IVP 10 ml PRN PRN Administration NEEDED PER PROVIDER ORDERS Sodium Chloride 10 ml 08/15/18 17:00 08/17/18 16:50 Normal Saline Flush 0.9% IVP 10 ml 0100,0900,1700 [facility] Administration - Lab Result Fish Bone Diagrams: 08/17/18 05:29 08/17/18 05:29 - Additional Planning My Orders: My Active Orders 08/17/18 Evaluate and Treat OT [OT] Routine Evaluate and Treat PT [PT] Routine Subjective - Subjective Patient Reports: Feeling Better, Other (Wonders if anything else can be done about his swallowing problem) Nursing Reports: No Complaints Objective Vital Signs: Vital Signs - 24 hr 08/16/18 08/17/18 08/17/18 23:01 00:05 08:00 Temperature 36.4 C L 36.8 C Heart Rate 85 Heart Rate [ 80 64 Brachial] Heart Rate [ Supine] Respiratory 18 16 16 Rate Blood Pressure 128/58 L 132/78 H [Right Brachial artery] Blood Pressure [Supine] O2 Saturation 93 98 08/17/18 08/17/18 08/17/18 11:00 11:13 13:36 Temperature Heart Rate 84 Heart Rate [ Brachial] Heart Rate [ Supine] Respiratory 16 Rate Blood Pressure [Right Brachial artery] Blood Pressure [Supine] O2 Saturation 89 L 96 08/17/18 08/17/18 15:10 16:06 Temperature 36.3 C L Heart Rate Heart Rate [ 60 Brachial] Heart Rate [ 59 L Supine] Respiratory 24 Rate Blood Pressure 130/70 [Right Brachial artery] Blood Pressure 121/71 [Supine] O2 Saturation 100 Oxygen O2 Source Nasal cannula I&O (Last 24 Hrs): Intake and Output Totals x24h 08/15/18 08/16/18 08/17/18 23:59 23:59 23:59 Intake Total 210.521 4788.333 790 Output Total 225 440 700 Balance 702.007 5657.333 90 General: Alert HEENT: Mucous membr. moist/pink, Other (Flat facies. Poor vision (has glaucoma and macular degeneration)) Neck: Supple, No JVD Neuro: Other (Flact affect, flat facies, tardykinesis, no tremor.) Cardiovascular: No murmurs Respiratory: No respiratory distress, Breath sounds nml Abdomen: Soft Extremities: No edema - Results Results: Laboratory Results WBC 12.3 x10^3/uL (4.8-10.8) H 08/17/18 05:29 RBC 3.30 10^6/uL (4.70-6.10) L 08/17/18 05:29 Hgb 10.5 g/dL (14.0-18.0) L 08/17/18 05:29 Hct 32.1 % (42.0-52.0) L 08/17/18 05:29 MCV 97.3 fL (80.0-94.0) H 08/17/18 05:29 MCH 31.7 pg (27.0-31.0) H 08/17/18 05:29 MCHC 32.6 g/dL (32.0-36.0) 08/17/18 05: RDW 17.3 % (12.0-15.0) H 08/17/18 05:29 Plt Count 145 10^3/uL (130-450) 08/17/18 05:29 MPV 8.5 fL (7.4-11.4) 08/17/18 05:29 Neut # (Auto) 10.9 10^3/uL (1.5-6.6) H 08/17/18 05:29 Lymph # (Auto) 0.7 10^3/uL (1.5-3.5) L 08/17/18 05:29 Emery # (Auto) 0.7 10^3/uL (0.0-1.0) 08/17/18 05:29 Eos # (Auto) 0.0 10^3/uL (0.0-0.7) 08/17/18 05:29 Baso # (Auto) 0.0 10^3/uL (0.0-0.1) 08/17/18 05:29 Absolute Nucleated RBC 0.01 x10^3/uL 08/17/18 05:29 Nucleated RBC % 0.1 /100WBC 08/17/18 05:29 VBG pH 7.462 (7.31-7.41) H 08/16/18 04:55 VBG pCO2 35.6 mmHg (41-51) L 08/16/18 04:55 VBG pO2 45.4 mmHg (25-47) 08/16/18 04:55 VBG HCO3 24.9 mmol/L (23-28) 08/16/18 04:55 VBG Total CO2 26.0 mmol/L (24-29) 08/16/18 04:55 VBG O2 Saturation 86.2 % (60-80) H 08/16/18 04:55 VBG Base Excess 1.3 mmol/L (-2 - +2) 08/16/18 04:55 Sodium 140 mmol/L (135-145) 08/17/18 05:29 Potassium 3.7 mmol/L (3.5-5.0) 08/17/18 05:29 Chloride 108 mmol/L (101-111) 08/17/18 05:29 Carbon Dioxide 23 mmol/L (21-32) 08/17/18 05:29 Anion Gap 9.0 (6-13) 08/17/18 05:29 BUN 22 mg/dL (6-20) H 08/17/18 05:29 Creatinine 0.9 mg/dL (0.6-1.2) 08/17/18 05:29 Estimated GFR (MDRD) 80 (>89) L 08/17/18 05:29 Glucose 157 mg/dL (70-100) H 08/17/18 05:29 Lactic Acid 1.3 mmol/L (0.5-2.2) 08/15/18 14:25 Calcium 8.1 mg/dL (8.5-10.3) L 08/17/18 05:29 Total Bilirubin 2.0 mg/dL (0.2-1.0) H 08/15/18 14:25 AST 22 IU/L (10-42) 08/15/18 14:25 ALT 17 IU/L (10-60) 08/15/18 14:25 Alkaline Phosphatase 89 IU/L (42-121) 08/15/18 14:25 Total Protein 6.6 g/dL (6.7-8.2) L 08/15/18 14:25 Albumin 3.6 g/dL (3.2-5.5) 08/15/18 14:25 Globulin 3.0 g/dL (2.1-4.2) 08/15/18 14:25 Albumin/Globulin Ratio 1.2 (1.0-2.2) 08/15/18 14:25 Lipase 20 U/L (22-51) L 08/15/18 14:25 Urine Color YELLOW 08/15/18 14:25 Urine Clarity CLEAR (CLEAR) 08/15/18 14:25 Urine pH 5.0 PH (5.0-7.5) 08/15/18 14:25 Ur Specific [place] >=1.030 (1.002-1.030) H 08/15/18 14:25 Urine Protein 30 mg/dL (NEGATIVE) H 08/15/18 14:25 Urine Glucose (UA) NEGATIVE mg/dL (NEGATIVE) 08/15/18 14:25 Urine Ketones NEGATIVE mg/dL (NEGATIVE) 08/15/18 14:25 Urine Occult Blood SMALL (NEGATIVE) H 08/15/18 14:25 Urine Nitrite NEGATIVE (NEGATIVE) 08/15/18 14:25 Urine Bilirubin NEGATIVE (NEGATIVE) 08/15/18 14:25 Urine Urobilinogen 0.2 (NORMAL) E.U./dL (NORMAL) 08/15/18 14:25 Ur Leukocyte Esterase NEGATIVE (NEGATIVE) 08/15/18 14:25 Urine RBC 0-5 /HPF (0-5) 08/15/18 14:25 Urine WBC 0-3 /HPF (0-3) 08/15/18 14:25 Ur Squamous Epith Cells RARE Squamous (<= Few) 08/15/18 14:25 Urine Bacteria None Seen /HPF (None Seen) 08/15/18 14:25 Urine Casts 0-2 Hyaline Casts /LPF 08/15/18 14:25 Ur Microscopic Review INDICATED 08/15/18 14:25 Urine Culture Comments NOT INDICATED 08/15/18 14:25
[2018-08-18] MEDS: ZINC OXIDE 20% OINT 28.35 GM TUBE TOP PRN (00:04)
[2018-08-18] MEDS: SODIUM CHLORIDE FLUSH 0.9% 10 ML SYRINGE IVP SCH ×2 (02:51→09:18)
[2018-08-18] MEDS: CLINDAMYCIN 900 MG/50 ML 50 ML IV SCH ×2 (02:52→09:23)
[2018-08-18 05:45] LABS: BASOPHILS % (AUTO) 0.3 %; EOSINOPHILS # (AUTO) 0.1 10^3/uL (0.0-0.7); HGB - HEMOGLOBIN 10.7 g/dL (14.0-18.0); LYMPHOCYTES # (AUTO) 0.8 10^3/uL (1.5-3.5); LYMPHOCYTES % (AUTO) 10.6 %; MEAN CORPUSCULAR HEMOGLOBIN 32.1 pg (27.0-31.0); MEAN CORPUSCULAR HGB CONC 33.2 g/dL (32.0-36.0); MEAN CORPUSCULAR VOLUME 96.5 fL (80.0-94.0); MEAN PLATELET VOLUME 8.9 fL (7.4-11.4); MONOCYTES # (AUTO) 0.6 10^3/uL (0.0-1.0); NEUTROPHILS % (AUTO) 80.1 %; PLT - PLATELET COUNT 154 10^3/uL (130-450); RED BLOOD COUNT 3.34 10^6/uL (4.70-6.10); RED CELL DISTRIBUTION WIDTH 16.9 % (12.0-15.0); WHITE BLOOD COUNT 7.5 x10^3/uL (4.8-10.8)
[2018-08-18 05:48] LABS: CALCIUM 8.1 mg/dL (8.5-10.3); CREATININE 0.7 mg/dL (0.6-1.2)
[2018-08-18 08:27] VITALS: BP 142/79
--- NOTE | 2018-08-18 09:11 | Discharge Plan ---
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 Weight on admission and: Weekly Call PCP immediately if weight increases by: 5 kg Other Notification Orders: Call PCP immediately if patient develops dyspnea, chest pain/tightness or edema. House Bowel Program: Yes Additional Bowel Program Orders: If no BM after 2 days, nurse may give M.O.M. 30ml PO PRN and/or ducolax Supp 1 NC and/or JAYDEN 250mg P.O., and/or senna 1-2 tabs PO. On day 3 nurse may give repeat above order until residents constipation is resolved. Annual Influenza Vaccine (between Jul 10 and February 06): Yes Two-step PPD per [facility] [id number] or approved exception documents: Yes Treatments & Other Orders: Maximize functional capacity with PT/Rehab Oxygen Orders: None Medication Orders: PLEASE REFER TO THE DISCHARGE MEDICATION LIST. Insulin Orders?: No - Medications New Prescriptions: Azithromycin [Zithromax] 250 mg PO BID 3 Days #6 Zinc Oxide/Petrolatum,White [Lon Moist Barrier Cream] 1 applic TP BID #99 cream..g. - Diet Type: Mechanical soft and nectar thick liquids Texture: [facility] soft Liquids: [place] thick May have monthly special meal: Yes - Therapies | Activity Therapy: Evaluation | Treat if indicated: PT, OT, Swallowing / ST Rehabilitation Potential: Maximize functional status Activity: Activity as Tolerated Weight Bearing: Full Weight Assistance Devices: Walker Additional Instructions: Resume prehospital medications. Take the new antibiotic and bowel-health pill, til they are done. See your PCP in 1-2 weeks in follow-up. If you have new or worsening symptoms, come back to the ER. Follow Up: PCP visit in 1-2 weeks."
[2018-08-18] MEDS: POLYETHYLENE GLYCOL 3350 17 GM PACKET PO SCH (09:15)
[2018-08-18] MEDS: MULTIVITAMIN W/MINERALS TABLET PO SCH (09:15)
[2018-08-18] MEDS: SACCHAROMYCES BOULARDII 250 MG CAPSULE PO SCH (09:15)
[2018-08-18] MEDS ORDERED: DABIGATRAN 75 MG CAPSULE PO SCH (10:00)
--- NOTE | 2018-08-18 10:17 | ADVANCE CARE PLANNING NOTE ---
Advance Care Planning - Date/Time Date: 08/18/18 Time: 10:20 - Purpose of encounter Text: To re-establish his wishes regarding Code status - Parties in attendance Parties in attendance: I spoke to the patient who was in bed. In the room was RT Raquel, as well. - Decisional capacity Decisional capacity of: The patient has full capacity and is able to communicate his wishes. He does remember having the meeting with Dr Lozano and his daughter was in the room. He does not remember signing a POLST, so he thinks the daughter did. - Subjective/Patient's story Subjective/Patient's story: The patient is nearly blind and has Parkinson's but has good memory. He confirmed what he thinks Full Code means and was correct. He is to be discharged to [facility] today and wants to have his wishes documented that he is a Full Code. - Objective/Medical story Objective/Medical Story: Patient was admitted with SOB and hemoptysis and treated for a CAP. He had an ACP meeting with Dr Lozano several days ago. Last night he wanted to speak to the Meter And Service Line Inspector to clarify Code status and he told Dr Lynne that he wants to be a Full Code. - Goals of Care Goals of care determinations: The patient understands that he is not a surgical candidate for repair of the esophageal diverticulum, I personally had this discussion with him yesterday, and his was in the room. He understands that his diet needs to be altered to help with swallowing and decrease the likelihood of aspiration. The patient wishes to be a Full Code and intubation and ventilator use is OK. - Plan Plan: Transfer to [facility] today, finish a course of antibiotics for pneumonia. Orders for Code Status were changed last night to: Attempt Resuscitation. - Code Status Code Status: Attempt Resuscitation - Time Spent on Advance Care Planning Time spent on advance care plannin min
--- NOTE | 2018-08-19 15:03 | DISCHARGE SUMMARY ---
Physician: Sarita Moss MD DATE OF ADMISSION: 08/15/2018 DATE OF DISCHARGE: 08/18/2018 HISTORY OF PRESENT ILLNESS: This is an 88-year-old, white male, with a history of Parkinson's, near blindness from glaucoma and macular degeneration, esophageal diverticulum that has caused him to have aspiration, he now requires an altered diet, history of mitral valve prolapse with severe mitral regurgitation and pulmonary hypertension, chronic atrial fibrillation on Pradaxa, who has been a resident of an assisted living facility over the past several months because of his weakness. He was found to have a cough, hemoptysis, fever, mild shortness of breath and was brought to the emergency room. He was found to have an elevated white count of 16,000 and a right middle lobe pneumonia. He was admitted for management of this. HOSPITAL COURSE AND DISCHARGE DIAGNOSES 1. Community-acquired pneumonia. The patient had sputum and blood cultures done. The blood cultures were negative. The sputum only grew Meme albicans. The patient was placed on empiric antibiotics, using Zithromax IV and vancomycin IV. He was transitioned to oral antibiotics of Zithromax for several more days after discharge. He continued to have cough and expectoration with intermittent hemoptysis. He did not require supplemental oxygen at the time of discharge and was in no respiratory distress. 3. Chronic atrial fibrillation, on Pradaxa. The patient's heart rate was managed with his home medications. He was initially not on Pradaxa because of the hemoptysis. This was resumed at the time of discharge. 4. Parkinson's disease. The patient flat affect, flat facies, and poor gait were secondary to his Parkinson's. He had no tremor and was able to feed himself. The patient requires further rehabilitation to maximize his function with PT after discharge. 5. Hypertension. The patient's medications were continued while here. 6. Coronary artery disease (CAD). The patient had no episodes of angina. He was on his preadmission medications while here. 7. Glaucoma. The patient's eyedrops were continued. 8. Macular degeneration. 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 9. Esophageal diverticulum. The patient was kept on his altered diet, including mechanical soft food and nectar-thick liquids. With this, there were no witnessed episodes of aspiration. 10. Mitral valve prolapse. 11. Severe mitral regurgitation. 12. Pulmonary hypertension. LABORATORIES AND IMAGING: Reviewed and summarized above. CONDITION AT DISCHARGE: Stable. PHYSICAL EXAMINATION VITAL SIGNS: Blood pressure 142/79. Pulse of 60-70, in atrial fibrillation. Afebrile. Room air saturation 94%. HEENT: Blindness. Oral mucosa was moist. NECK: Positive JVD in a vertical position. No carotid bruits. CHEST: Right basilar crackles. Left clear. No wheezing. HEART: Sounds distant. 1-2/6 systolic murmur heard at the lower sternal border and apex. ABDOMEN: Soft and benign. EXTREMITIES: No clubbing, cyanosis, or edema. NEUROLOGIC: Flat affect and facies. No tremor. Poor gait. CODE STATUS: FULL CODE. ALLERGIES: NONE. MEDICATIONS AT THE TIME OF DISCHARGE: 1. Sublingual nitroglycerin p.r.n. 2. Multivitamin daily. 3. Calcium carbonate 500 mg b.i.d. 4. Vitamin D3 at 2000 units daily. 5. Pradaxa 150 mg b.i.d. 6. Flonase nasal spray b.i.d. 7. Latanoprost eye drops bilaterally daily. 8. Altace 5 mg daily. 9. Simvastatin 10 mg every night. 10. Timolol eyedrops bilaterally daily. 11. Zithromax 250 mg b.i.d. for an additional 3 days. 12. MiraLax daily. 13. Florastor 250 mg b.i.d. for an additional 3 days. 15. Spironolactone 12.5 mg daily. 16. Zinc oxide topically to the affected area b.i.d. FOLLOWUP: The patient describes that he has a followup with his PCP in the next 1-2 days. Time required to complete this entire discharge, chart review, patient and daughter education, confirmation of his code status, and dictation: 60 minutes. cc: Chapin Ruiz DO TD: 08/19/2018 13:44 MTDD
== END 2018-08-18 12:13 | DRG 178 ==
LOC: ED 13:27 → MS2 16:19
PROVIDERS: ADMIT Specialist; ATTEND Internal Medicine
DX: J18.1 Lobar pneumonia, unspecified organism (principal); B37.1 Pulmonary candidiasis; K91.2 Postsurgical malabsorption, not elsewhere classified; I48.91 Unspecified atrial fibrillation; K22.5 Diverticulum of esophagus, acquired; I48.2 Chronic atrial fibrillation; G20 Parkinson's disease; I10 Essential (primary) hypertension; I34.0 Nonrheumatic mitral (valve) insufficiency; I27.20 Pulmonary hypertension, unspecified; I25.10 Atherosclerotic heart disease of native coronary artery without angina pectoris; M19.90 Unspecified osteoarthritis, unspecified site; H35.30 Unspecified macular degeneration; H40.9 Unspecified glaucoma; E78.00 Pure hypercholesterolemia, unspecified; R35.0 Frequency of micturition; R35.1 Nocturia; Z79.02 Long term (current) use of antithrombotics/antiplatelets; Z96.649 Presence of unspecified artificial hip joint; Z87.891 Personal history of nicotine dependence; Z85.6 Personal history of leukemia
CPT/HCPCS: 36415; 71046; 80048; 80053; 81001; 81003; 82803; 83605; 83690; 85025; 87040; 87070; 87086; 87205; 94640; 96365; 99283; 99284

== ENCOUNTER 2018-10-31 00:58 | Inpatient (IN) | payer MEDICARE, OTHER ==
[2018-10-31 01:45] LABS: GLUCOSE, URINE (UA) NEGATIVE (NEGATIVE); KETONES,URINE (UA) TRACE mg/dL (NEGATIVE); LEUKOCYTE ESTERASE, URINE NEGATIVE (NEGATIVE); NITRITE,URINE NEGATIVE (NEGATIVE); OCCULT BLOOD,URINE LARGE (NEGATIVE); PH,URINE 5.5 PH (5.0-7.5); PROTEIN,URINE 100 mg/dL (NEGATIVE); UROBILINOGEN,URINE 0.2 (NORMAL) E.U./dL (NORMAL)
[2018-10-31 01:48] LABS: BILIRUBIN,URINE NEGATIVE (NEGATIVE); CLARITY,URINE SL. CLOUDY (CLEAR); ICTOTEST,URINE NEGATIVE
[2018-10-31 01:53] LABS: BACTERIA,URINE Moderate /HPF (None Seen); RBC,URINE TNTC /HPF (0-5); SQUAMOUS EPITHELIAL CELL,UR NONE SEEN (<= Few)
[2018-10-31] MEDS ORDERED: SODIUM CHLORIDE 0.9% 500 ML IV STA (01:59)
[2018-10-31 02:08] LABS: BASOPHILS # (AUTO) 0.1 10^3/uL (0.0-0.1); BASOPHILS % (AUTO) 0.9 %; EOSINOPHILS % (AUTO) 0.4 %; HGB - HEMOGLOBIN 12.2 g/dL (14.0-18.0); LYMPHOCYTES # (AUTO) 0.6 10^3/uL (1.5-3.5); LYMPHOCYTES % (AUTO) 4.4 %; MEAN CORPUSCULAR HEMOGLOBIN 29.9 pg (27.0-31.0); MEAN CORPUSCULAR HGB CONC 30.8 g/dL (32.0-36.0); MEAN CORPUSCULAR VOLUME 97.1 fL (80.0-94.0); MEAN PLATELET VOLUME 10.6 fL (7.4-11.4); MONOCYTES # (AUTO) 0.4 10^3/uL (0.0-1.0); MONOCYTES % (AUTO) 3.2 %; NEUTROPHILS # (AUTO) 11.9 10^3/uL (1.5-6.6); NEUTROPHILS % (AUTO) 91.1 %; PLT - PLATELET COUNT 140 10^3/uL (130-450); RED BLOOD COUNT 4.09 10^6/uL (4.70-6.10); RED CELL DISTRIBUTION WIDTH 19.6 % (12.0-15.0); WHITE BLOOD COUNT 13.1 x10^3/uL (4.8-10.8)
[2018-10-31 02:21] LABS: ALBUMIN/GLOBULIN RATIO 0.9 (1.0-2.2); BILIRUBIN,TOTAL 1.7 mg/dL (0.2-1.0); CALCIUM 8.5 mg/dL (8.5-10.3); TOTAL PROTEIN 6.2 g/dL (6.7-8.2)
[2018-10-31] MEDS ORDERED: D5.45NS W/20 MEQ KCL 1,000 ML IV SCH ×2 (03:00→03:14)
[2018-10-31] MEDS ORDERED: POTASSIUM CHLOR 10 MEQ/100 ML 10 MEQ/100 ML BAG IV ONE (03:49)
[2018-10-31] MEDS: SODIUM CHLORIDE FLUSH 0.9% 10 ML SYRINGE IVP PRN ×2 (03:56→06:17)
[2018-10-31] MEDS ORDERED: cefTRIAXone 1 GM in SODIUM CHLORIDE 0.9% MINIBAG 100 ML IV SCH (06:00)
[2018-10-31 06:15] LABS: BASOPHILS % (AUTO) 0.4 %; EOSINOPHILS % (AUTO) 0.2 %; HGB - HEMOGLOBIN 11.6 g/dL (14.0-18.0); LYMPHOCYTES # (AUTO) 0.7 10^3/uL (1.5-3.5); LYMPHOCYTES % (AUTO) 5.8 %; MEAN CORPUSCULAR HEMOGLOBIN 29.6 pg (27.0-31.0); MEAN CORPUSCULAR HGB CONC 30.2 g/dL (32.0-36.0); MEAN CORPUSCULAR VOLUME 97.8 fL (80.0-94.0); MEAN PLATELET VOLUME 10.1 fL (7.4-11.4); MONOCYTES # (AUTO) 0.4 10^3/uL (0.0-1.0); MONOCYTES % (AUTO) 3.2 %; NEUTROPHILS # (AUTO) 10.4 10^3/uL (1.5-6.6); NEUTROPHILS % (AUTO) 90.4 %; PLT - PLATELET COUNT 122 10^3/uL (130-450); RED BLOOD COUNT 3.91 10^6/uL (4.70-6.10); RED CELL DISTRIBUTION WIDTH 19.3 % (12.0-15.0); WHITE BLOOD COUNT 11.5 x10^3/uL (4.8-10.8)
[2018-10-31] MEDS: SODIUM CHLORIDE FLUSH 0.9% 10 ML SYRINGE IVP SCH ×3 (06:17→17:26)
[2018-10-31 06:23] LABS: CALCIUM 8.3 mg/dL (8.5-10.3); CREATININE 0.9 mg/dL (0.6-1.2)
[2018-10-31] MEDS ORDERED: POTASSIUM CHLORIDE 20 MEQ TABLET PO SCH (06:59)
[2018-10-31] MEDS ORDERED: PANTOPRAZOLE 40 MG VIAL IVP SCH (07:00)
[2018-10-31] MEDS ORDERED: DEXTROSE 5%-0.2% NACL 1,000 ML IV SCH (07:00)
--- NOTE | 2018-10-31 07:07 | HISTORY & PHYSICAL EXAMINATION ---
DATE OF SERVICE: 10/31/2018 Physician: Sarita Moss MD HISTORY OF PRESENT ILLNESS: This is an 88-year-old white male who lives at [facility]. He has a history of Parkinson's disease, macular degeneration and glaucoma which have made him blind, history of inoperable mitral valve prolapse with mitral regurgitation with pulmonary hypertension and cor pulmonale, history of esophageal diverticulum causing recurrent aspiration, history off atrial fibrillation on Pradaxa. He was admitted here two months ago for community- acquired pneumonia. The patient was sent to the ER by staff from [facility] because of hematuria. In the emergency room, he was found to be severely dehydrated with sodium of 158, dry oral mucosa with tongue fissures, mouth breathing and very weak, and the first blood pressure was hypotensive at 80 systolic; however, after fluids started in the ER, his blood pressure is 110 systolic. PAST MEDICAL HISTORY: Chronic atrial fibrillation on Pradaxa, Parkinson disease, hypertension, CAD, glaucoma and macular degeneration which made him blind, esophageal diverticulum for which he needs to be on an diet that is mechanical soft diet and nectar thick liquids to lessen aspiration, mitral valve prolapse with severe mitral regurgitation, pulmonary hypertension with PA pressure 102 mmHg, cor pulmonale. ALLERGIES: NONE. MEDICATIONS 1. Zinc oxide topically. 2. Timolol eyedrops. 3. Spironolactone 25 mg daily. 4. Simvastatin 10 mg every night. 5. Altace 5 mg daily. 6. Sublingual nitroglycerin p.r.n. 7. Multivitamin daily. 8. Latanoprost eyedrops daily. 9. Flonase p.r.n. 10. Pradaxa 150 mg b.i.d. 11. Vitamin D3 at 2000 units daily. 12. He finished taking Zithromax and Florastor after the pneumonia admission. FAMILY HISTORY: No inherited diseases. SOCIAL HISTORY: A nondrinker, nonsmoker, no substance abuse. REVIEW OF SYSTEMS: A comprehensive review of systems was performed and the pertinent positives are in the HPI, the rest are negative. PHYSICAL EXAMINATION GENERAL: A cachectic, tall lanky white male. He is mouth breathing with "an O sign", appears fatigued. VITAL SIGNS: Blood pressure 85/47 on presentation, now up to 132/68, pulse is 75, in atrial fibrillation, respiratory rate 23, room air saturation 95%, afebrile. He is supine in bed. HEENT: Reveals sunken eyes, temporal wasting. Dry oral mucosa. Tongue fissuring from dehydration. NECK: Without JVD. No carotid bruits. LUNGS: Clear anteriorly. HEART: Heart sounds irregular with a 2-3/6 systolic murmur at the lower left sternal border and apex. ABDOMEN: Soft, scaphoid, nontender. EXTREMITIES: No edema. Positive skin tenting. NEUROLOGIC: Flat facies, rigid appearance, and no resting tremor. LABORATORY DATA: Sodium 158, potassium 2.8, chloride 122, BUN 33, creatinine 1.0. Lactic acid 1.8, calcium 8.5. Normal liver tests. Troponin 0.06, albumin 3.0. White blood count 15.1 with a left shift, hemoglobin 12.2 with MCV 97, platelet count 140. No INR was done, but it would be inaccurate on Pradaxa. Urinalysis showed specific gravity of greater than 1.030, high urinary protein, large occult blood, too many red blood cells to count, few white blood cells and moderate bacteriuria. EKG showed atrial fibrillation, rate 75, with left bundle branch block. There is no old EKG for comparison. No chest x-ray was done. IMPRESSION/DIAGNOSES: 1. Hypernatremia. 2. Dehydration. 3. Prerenal azotemia. 4. Hypokalemia. 5. Atrial fibrillation on Pradaxa. 6. Hematuria. 7. Urinary tract infection. 8. Esophageal diverticulum and history of aspiration. 9. Glaucoma and blindness. 10. Parkinson's disease. 11. Mitral valve prolapse with severe mitral regurg. 12. Pulmonary hypertension. 13. Cor pulmonale by Echo done 2 months ago. PLAN: Admit the patient to a medical/surgical bed on telemetry. Hold the Pradaxa until his hematuria clears. Obtain urine culture and start on empiric coverage for gram negatives, will use Rocephin. Restart Florastor. Begin IV hydration with hypotonic fluids, we will use D5 one-half NS with potassium. Replace his potassium with riders. Follow his sodium and potassium every 6-[address] his LANE inhibitor because of the renal failure, stop his Spironolactone because of the marked dehydration. Continue with his eyedrops of Xalatan and Timolol. Resume his Pradaxa once his hematuria clears. Order a diet adjusted for his esophageal diverticulum: pureed and nectar thick liquids (as per swallowing eval done here 2 months ago). Deep venous thrombosis prophylaxis: Sequential compression devices since his anticoagulant will be discontinued temporarily. CODE STATUS: FULL CODE (I had an extensive ACP meeting with this patient two months ago and he stated he wants FULL CODE status). ATTESTATION: The patient is expected to be discharged or transferred to another facility within 96 hours: Yes. TD: 10/31/2018 03:36 [facility]OSPITALUriah
[2018-10-31] MEDS: POTASSIUM CHLOR 10 MEQ/100 ML 10 MEQ/100 ML BAG IV SCH ×3 (08:10→11:07)
[2018-10-31] MEDS: SACCHAROMYCES BOULARDII 250 MG CAPSULE PO SCH ×2 (08:39→19:57)
[2018-10-31] MEDS: DEXTROSE 5% 1,000 ML IV SCH ×2 (08:53→17:26)
[2018-10-31] MEDS ORDERED: POLYETHYLENE GLYCOL 3350 17 GM PACKET PO SCH (09:00)
[2018-10-31] MEDS ORDERED: NON FORMULARY MED (Cholecalciferol (Vitamin D3) [Vitamin D3] 2,000 UNIT) PO SCH (09:00)
[2018-10-31] MEDS ORDERED: CHOLECALCIFEROL 1,000 UNIT TABLET PO SCH (09:00)
[2018-10-31] MEDS: TIMOLOL 0.5% OPHTH DROPS EACHEYE SCH ×2 (09:04→20:07)
--- NOTE | 2018-10-31 11:47 | XRAY Report ---
Reason: Aspiration, hypoxia Procedure Date: 10/31/2018 Accession Number: [id number] / [id number] Procedure: XR - Chest 1 View X-Ray CPT Code: 61637 FULL RESULT: EXAM: CHEST RADIOGRAPHY EXAM DATE: 10/31/2018 10:44 AM. CLINICAL HISTORY: Aspiration, hypoxia. COMPARISON: 08/15/2018. TECHNIQUE: 1 view. FINDINGS: Lungs/Pleura: Mild groundglass opacity at the bases. Small amount of central airway thickening. No large effusion. No pneumothorax. Mediastinum: Enlarged cardiac silhouette size. Atherosclerotic vascular calcification. Other: None. IMPRESSION: 1. Mild bibasilar groundglass opacity and small amount of central airway thickening. Similar appearance was also visualized on the prior study. This may reflect mild residual or recurrence in the proper settings, and may reflect aspiration given the clinical history. 2. Stable appearing enlarged cardiac silhouette size. RADIA
[2018-10-31] MEDS ORDERED: PIPERACILLIN/TAZOBACTAM 3.375 GM in SODIUM CHLORIDE 0.9% MINIBAG 100 ML IV SCH ×2 (14:00→16:00)
--- NOTE | 2018-10-31 14:15 | ED Physician Documentation ---
PD HPI MALE - Stated complaint Stated Complaint: MALE - Chief complaint Chief Complaint: Abd Pain - History obtained from History obtained from: Patient, Family - History of Present Illness Timing - onset: Today Timing - details: Abrupt onset Pain level now: 0 Associated symptoms: Hematuria. No: Dysuria, Urinary frequency, Unable to urinate, Abdominal pain, Indwelling catheter Similar symptoms before: Has not had sx before Recently seen: Not recently seen - Additional information Additional information: [facility] resident, staff noted patient had dark-colored urine last night. patient has no c/o at this time Review of Systems Constitutional: denies: Fever Cardiac: reports: Reviewed and negative Respiratory: reports: Reviewed and negative GI: reports: Reviewed and negative : reports: Hematuria. denies: Dysuria, Frequency Neurologic: denies: Generalized weakness, Focal weakness PD PAST MEDICAL HISTORY - Past Medical History Past Medical History: Yes Cardiovascular: Hypertension, High cholesterol, Coronary artery disease, Atrial fibrillation, Valve disorder Respiratory: None Neuro: Parkinson's Endocrine/Autoimmune: None GI: Other : Other HEENT: Chronic vision loss, Glaucoma, Macular degeneration Psych: None Musculoskeletal: Osteoarthritis Derm: None - Past Surgical History Past Surgical History: Yes General: Other Ortho: Hip replacement HEENT: Cataracts, Tonsil/Adenoidectomy - Present Medications Home Medications: Ambulatory Orders Medication Instructions Recorded Confirmed Simvastatin 10 mg PO QPM 06/07/18 10/31/18 Fluticasone [Flonase] 1 sprays ELVIE BID PRN 06/08/18 10/31/18 Latanoprost 0.005% Ophth Drops 1 drops EACHEYE QPM 06/08/18 10/31/18 [Xalatan Ophth Drops] Multivitamin [Theragran] 1 each PO DAILY 06/08/18 10/31/18 Nitroglycerin [Nitrostat] 0.4 mg SL Q5MIN PRN 06/08/18 10/31/18 Ramipril [Altace] 5 mg PO DAILY 06/08/18 10/31/18 Timolol 0.5% Ophth Drops [Timoptic 1 drops EACHEYE BID 06/08/18 10/31/18 0.5% Ophth Drops] Zinc Oxide/Petrolatum,White 1 applic TP BID #99 cream..g. 08/18/18 10/31/18 [Lon Moist Barrier Cream] Acetaminophen 1,000 mg PO Q8H PRN 10/31/18 10/31/18 Carboxymethylcellulose Sodium 1 drops EACHEYE PRN PRN 10/31/18 10/31/18 [Refresh Tears] Dabigatran Etexilate Mesylate 150 mg PO BID 10/31/18 10/31/18 [Pradaxa] Loperamide HCl [Loperamide] 2 mg PO TID PRN 10/31/18 10/31/18 Spironolactone 37.5 mg PO DAILY 10/31/18 10/31/18 - Allergies Allergies/Adverse Reactions: Allergies Allergy/AdvReac Type Severity Reaction Status Date / Time No Known Drug Allergies Allergy Verified 10/31/18 01:23 - Social History Does the pt smoke?: No Smoking Status: Never smoker Does the pt drink ETOH?: No Does the pt have substance abuse?: No - Immunizations Immunizations are current?: Yes - POLST Patient has POLST: Yes PD ED PE NORMAL - Vitals Vital signs reviewed: Yes - General General: Alert and oriented X 3, No acute distress, Other (cachectic) - HEENT HEENT: Other (parched mucous me,branes) - Respiratory Respiratory: No respiratory distress, Clear bilaterally - Abdomen Abdomen: Soft, Non tender - Derm Derm: Normal color, Warm and dry - Extremities Extremities: No edema PD ED PE EXPANDED - Cardiac Cardiac: Irregularly irregular, Murmur Present Results - Vitals Vitals: Vital Signs - 24 hr 10/31/18 10/31/18 10/31/18 01:10 01:21 01:55 Temperature 36.6 C Heart Rate 76 85 71 Respiratory 18 13 24 Rate Blood Pressure 85/47 L 114/91 H 105/67 O2 Saturation 95 95 96 10/31/18 02:28 Temperature Heart Rate 67 Respiratory 18 Rate Blood Pressure 111/67 O2 Saturation 99 Oxygen O2 Source Room air - EKG (time done) No standard instances Rate: Rate (enter#) (81) Rhythm: Atrial fibrillation [place]: LAD Intervals: Wide QRS (NSIVCD) QRS: LVH Ischemia: ST elevation c/w repol, ST depression, T wave inversion - Labs Labs: Laboratory Tests 10/31/18 10/31/18 10/31/18 01:42 01:48 01:48 WBC 13.1 H RBC 4.09 L Hgb 12.2 L Hct 39.7 L MCV 97.1 H MCH 29.9 MCHC 30.8 L RDW 19.6 H Plt Count 140 MPV 10.6 Neut # (Auto) 11.9 H Lymph # (Auto) 0.6 L Elliott # (Auto) 0.4 Eos # (Auto) 0.0 Baso # (Auto) 0.1 Absolute Nucleated RBC 0.00 Nucleated RBC % 0.0 Sodium 158 H* Potassium 2.8 L Chloride 122 H* Carbon Dioxide 28 Anion Gap 8.0 BUN 33 H Creatinine 1.0 Estimated GFR (MDRD) 71 L Glucose 116 H Lactic Acid Calcium 8.5 Total Bilirubin 1.7 H AST 22 ALT 15 Alkaline Phosphatase 66 Troponin I Total Protein 6.2 L Albumin 3.0 L Globulin 3.2 Albumin/Globulin Ratio 0.9 L Lipase 23 Urine Color BROWN Urine Clarity SL. CLOUDY Urine pH 5.5 Ur Specific Dewey >=1.030 H Urine Protein 100 H Urine Glucose (UA) NEGATIVE Urine Ketones TRACE Urine Occult Blood LARGE H Urine Nitrite NEGATIVE Urine Bilirubin NEGATIVE Urine Urobilinogen 0.2 (NORMAL) Ur Leukocyte Esterase NEGATIVE Urine RBC TNTC H Urine WBC 0-3 Ur Squamous Epith Cells NONE SEEN Urine Bacteria Moderate H Ur Microscopic Review INDICATED Urine Culture Comments INDICATED 10/31/18 10/31/18 01:48 02:08 WBC RBC Hgb Hct MCV MCH MCHC RDW Plt Count MPV Neut # (Auto) Lymph # (Auto) Elliott # (Auto) Eos # (Auto) Baso # (Auto) Absolute Nucleated RBC Nucleated RBC % Sodium Potassium Chloride Carbon Dioxide Anion Gap BUN Creatinine Estimated GFR (MDRD) Glucose Lactic Acid 1.8 Calcium Total Bilirubin AST ALT Alkaline Phosphatase Troponin I 0.06 Total Protein Albumin Globulin Albumin/Globulin Ratio Lipase Urine Color Urine Clarity Urine pH Ur Specific [place]wey Urine Protein Urine Glucose (UA) Urine Ketones Urine Occult Blood Urine Nitrite Urine Bilirubin Urine Urobilinogen Ur Leukocyte Esterase Urine RBC Urine WBC Ur Squamous Epith Cells Urine Bacteria Ur Microscopic Review Urine Culture Comments PD MEDICAL DECISION MAKING - ED course Complexity details: reviewed results, re-evaluated patient, considered differential, d/w patient, d/w family ED course: hematuria on UA; patient is on predaxa for atrial fibrillation. the urine sample is grossly bloody but translucent and without clots; does not appear to be significant bleeding at this time. he appears very dehydrated with parched mucous membranes, and hypernatremic with high bun/normal creatinine also suggest substantial dehydration. initial BP was hypotensive (80s SBP, sitting up in triage, improved when lying supine). Departure - Departure Disposition: 66 [facility] DC/Xfer Clinical Impression: Hypernatremia, Dehydration, Hypokalemia Condition: Stable Discharge Date/Time: 10/31/18 03:36
[2018-10-31 15:45] LABS: MAGNESIUM 2.5 mg/dL (1.7-2.8); PHOSPHORUS 2.2 mg/dL (2.5-4.6)
[2018-10-31] MEDS ORDERED: POTASSIUM PHOSPHATE 15 MMOL in SODIUM CHLORIDE 0.9% 250 ML IV ONE (16:30)
[2018-10-31 19:29] VITALS: BP 106/64
[2018-10-31] MEDS ORDERED: LORazepam 0.5 MG TABLET PO PRN (20:50)
[2018-10-31] MEDS ORDERED: LATANOPROST 0.005% OPHTH DROPS EACHEYE SCH (21:00)
--- NOTE | 2018-10-31 23:44 | DISCHARGE SUMMARY ---
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 He was recently hospitalized, 2 months ago, at [facility] for pneumonia. On the current admission, he was sent by the staff from [facility] to the hospital ER because of hematuria. In the ER, he was found to be severely dehydrated with a sodium of 158, dry oral mucosa, with tongue fissures, skin tenting, blood pressure 80 systolic, which responded to fluids started in the ER and blood pressure improved to 110-130 systolic. His urine had many RBCs and bacteriuria. The patient was started on IV antibiotics for his UTI and given hypotonic iv fluids for his hypernatremia and dehydration. His Spironolactone and Altace were stopped because of dehydration and low BP, as well as Pradaxa on hold because of the hematuria. His diet was ordered (as advised two months previously) with mechanically altered dysphagia diet/puree diet plus nectar-thin liquids, in order to lessen the chance of aspiration from his inoperable esophageal diverticulum. The Hospitalist had a meeting with the patient, and daughter in his room, and his previous Full Code status was changed to DNR. On the evening of 10/31/2018, he was noted to have marked choking and witnessed aspiration of his dinner. Following this, he became hypoxic, required supplemental oxygen via Ventimask. He became more comfortable, but then respirations ceased at 2121, with his daughter at his bedside. CAUSE OF AND HOSPITAL DIAGNOSES: 1. Respiratory arrest. 2. Aspiration. 3. Parkinson's disease. 4. Esophageal diverticulum. 5. Hypernatremia. 6. Hypokalemia. 7. Dehydration. 8. Prerenal azotemia. 9. Glaucoma and macular degeneration. 10. Blindness. 11. Chronic atrial fibrillation. 12. Hematuria. 13. Urinary tract infection. 14. Mitral valve prolapse. 15. Severe mitral regurgitation. 16. Severe pulmonary hypertension. 17. Chronic cor pulmonale. cc: Chapin Ruiz DO TD: 10/31/2018 22:05 MTDD
--- NOTE | 2018-11-01 07:38 | ADVANCE CARE PLANNING NOTE ---
Advance Care Planning - Date/Time Date: 10/31/18 Time: 10:00 - Purpose of encounter Text: Patient is an 88 yo m with past medical history of severe parkinsons with dysphagia, esophageal diverticulum also causing dysphagia, chronic atrial fibrillation on Pradaxa, hypertension, CAD, macular degeneration and glaucoma who came in to the ER due to hematuria. He was found to have a urinary tract infection and admitted to the hospital. He is on a pure diet and unfortunately has been aspirating since coming into the hospital. The patient is previously a full code and wants everything done. Currently the patient is becoming hypoxic and has developed pneumonia. - Parties in attendance Parties in attendance: Patient, patient's and patient's daughter who is the DPOA - Decisional capacity Decisional capacity of: Patient has Parkinson's and is slow to respond but has an understanding of his illness and is able to make his own decisions. He has the capacity to make decisions. - Subjective/Patient's story Subjective/Patient's story: The patient has been living at [facility] for some time now and has been slowly deteriorating. The 2 things that he really enjoyed to do in life is eat and read. Unfortunately both have been partially taken away from him due to his macular degeneration which is left him blind and his dysphasia from his esophageal diverticulum which is inoperable and his Parkinson's. - Objective/Medical story Objective/Medical Story: Medically the patient appears to be deteriorating over time. It appears his deterioration is becoming more rapid. Patient is having a harder and harder time swallowing as he continues to have aspiration. On this admission the patient continues to aspirate. In the past he has decided to be full code. - Goals of Care Goals of care determinations: The patient had a previous POLST form which indicated that he would want to be full code with limited intervention but today we had filled out a new form. The patient has decided to be DO NOT RESUSCITATE and limited intervention. He also has decided that he would not want a feeding tube in any case. He states that he would want to go in peace. He does not want to stop trying to eat despite his aspiration. - Plan Plan: The patient's been changed to a DO NOT RESUSCITATE. We will continue to give him feeding for comfort and quality. Unfortunately there is a high likelihood that he may aspirate and worsen his pneumonia. - Code Status Code Status: Do Not Attempt Resuscitation - Time Spent on Advance Care Planning Time spent on advance care plannin Minutes
== END 2018-10-31 21:22 | disposition expired | DRG 640 ==
LOC: ED 00:58 → MS2 02:53
PROVIDERS: ADMIT Internal Medicine; ATTEND Internal Medicine
DX: E87.0 Hyperosmolality and hypernatremia (principal); R09.2 Respiratory arrest; J69.0 Pneumonitis due to inhalation of food and vomit; N39.0 Urinary tract infection, site not specified; R64 Cachexia; Z68.1 Body mass index [BMI] 19.9 or less, adult; E78.00 Pure hypercholesterolemia, unspecified; T17.920A Food in respiratory tract, part unspecified causing asphyxiation, initial encounter; I38 Endocarditis, valve unspecified; X58.XXXA Exposure to other specified factors, initial encounter; Y92.230 Patient room in hospital as the place of occurrence of the external cause; E86.0 Dehydration; M19.90 Unspecified osteoarthritis, unspecified site; E87.6 Hypokalemia; I48.2 Chronic atrial fibrillation; G20 Parkinson's disease; I10 Essential (primary) hypertension; K22.5 Diverticulum of esophagus, acquired; R13.10 Dysphagia, unspecified; I25.10 Atherosclerotic heart disease of native coronary artery without angina pectoris; H35.30 Unspecified macular degeneration; H40.9 Unspecified glaucoma; H54.7 Unspecified visual loss; R31.9 Hematuria, unspecified; I34.0 Nonrheumatic mitral (valve) insufficiency; I34.1 Nonrheumatic mitral (valve) prolapse; I27.29 Other secondary pulmonary hypertension; R79.89 Other specified abnormal findings of blood chemistry; Z96.649 Presence of unspecified artificial hip joint; Z66 Do not resuscitate; Z79.01 Long term (current) use of anticoagulants; Z79.899 Other long term (current) drug therapy
CPT/HCPCS: 36415; 51701; 71045; 80048; 80053; 81001; 81003; 83605; 83690; 83735; 84100; 84132; 84295; 84484; 85025; 87086; 93005; 96360; 99284; 99285